=== PATIENT | male | born 1940 | race Caucasian/White ===

== ENCOUNTER 2017-01-05 16:48 | Inpatient (IN) | payer OTHER ==
[~2017-01-05] VITALS: Ht 200.7 cm; Wt 129.3 kg
[~2017-01-05 16:48] MED LIST: ASPIRIN325 MG PO; CEPHALEXIN500 M1 PO; COLCHICINE0.6 MG PO; FIBRO-TABS1 TAB PO; FISH OIL1000 MG PO; GLIMEPIRIDE1 MG PO; HYDROCHLOROTHIA25 MG PO; LISINOPRIL20 MG PO; LOPRESSOR 25MG25 MG PO; MAGNESIUM OXID400 MG PO; MORPHINE SULFAT30 M5 PO; MULTIVITAMIN1 TAB PO; NEURONTIN100 MG PO; PAMELOR25 MG PO; PERCOCET 325 MG1 TA3 PO; POTASSIUM CHLO10 MEQ PO; SIMVASTATIN40 MG PO; TOPCARE ASPIRI325 MG PO
--- NOTE | 2017-01-05 17:37 | History & Physical Pre-Op ---
General Information and HPI History of Present Illness: Tucker is a 76-year-old diabetic male with a history of a nonhealing ulcer to the plantar aspect of his left foot. The patient has undergone an extended course of conservative care, including local intensive wound care consisting of periodic weekly debridements and offloading with a total contact cast. Unfortunately, the patient's ulceration failed to improve and he developed a probing lesion with x-ray findings suggestive of osteomyelitis to the second metatarsal head. The patient recently completed a one-week course of Augmentin for a localized cellulitis. The patient did complain of a low-grade fever today of 100.1, otherwise he has been without any acute complaints. Allergies/Medications Allergies: Coded Allergies: NO KNOWN ALLERGIES (01/24/11) Home Med list Aspirin 325 MG ECT 1 TAB PO DAILY HEART (Reported) Cephalexin 500 MG TAB 1 TAB PO Q6 Cellulitis please stop taking this medication after completing the complete course of antibiotics. Your last day of antibiotic is 04/12/15. Colchicine 0.6 MG TAB 1 TAB PO BID Gout Fiber (Fibro-Tabs) 1 TAB TAB 1 TAB PO DAILY SUPPLEMENT (Reported) Gabapentin (Neurontin) 100 MG CAP 2 CAP PO BID UNKNOWN (Reported) Glimepiride 1 MG TAB 1 TAB PO PRN DIABETES (Reported) Lisinopril 20 MG TAB 1 TAB PO BID BP (Reported) Magnesium Oxide (Unknown Strength) TAB 400 MG PO DAILY SUPPLEMENT (Reported) Metoprolol Tartrate (Lopressor) 25 MG TAB 1 TAB PO BID HEART (Reported) Morphine Sulfate 30 MG TAB 1 TAB PO TID PRN PAIN (Reported) Multivitamin (Multiple Vitamins) 1 TAB TAB 1 TAB PO DAILY SUPPLEMENT ( Reported) NORTRIPTYLINE HCL (Pamelor) 25 MG CAP 1 CAP PO QPM UNKNOWN (Reported) OMEGA-3/DHA/EPA/FISH OIL ([place]-3 Fish Oil 1,000 MG Sftg) 1,000 MG SGL 1 CAP PO DAILY SUPPLEMENT (Reported) OXYCODONE HCL/ACETAMINOPHEN (Percocet 7.5-325 MG Tablet) 325 MG/7.5 MG TAB 1 TAB PO 4 TIMES/DAY PRN PAIN Simvastatin 40 MG TAB 1 TAB PO QPM CHOLESTEROL (Reported) Past History Medical History Neurological: NONE EENT: NONE Cardiovascular: CAD (status post stent 4 yrs 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 He is status post a dorsal column pain stimulator, prostate cancer status post prostatectomy and TURP, wrongful hammertoe repairs with toe amputation, status post MRSA infection, left total knee arthroplasty, herniorrhaphy, ACS s/p PCI,cellulitis History of MRSA: Yes History of VRE: No History of CDIFF: No Pneumonia Vaccine: 01/02/14 Influenza Vaccine: 03/24/14 Surgical History Pertinent Surgical History: hernia repair-inguinal, knee replacement (bilateral) , prostatectomy, Left great toe amputation status post hammertoe repair Past Family/Social History Family History Relations & Conditions if any Relation not specified for: No pertinent family history Psychosocial History Services at Home None Functional Ability ADLs Independent: dressing, eating, toileting, bathing. Ambulation: independent Review of Systems Review of Systems: Unremarkable except for that noted in history present illness Exam & Diagnostic Data Physical Exam: Rosado grade 4 ulceration noted to the plantar aspect of the left foot, at the level of the second metatarsal head. There is a mixed fibrotic and granular wound bed identified. At the proximal margin, the metatarsophalangeal joint is noted to be exposed with direct visualized patient of the metatarsal head. Minimal serous drainage identified. No crepitus or fluctuance identified. Assessment/Plan Assessment/Plan: Left foot cellulitis with osteomyelitis in the setting of a nonhealing neuropathic ulcer. Patient will be admitted for an initial debridement and cultures. Dr. Gibbs will be consultation for any perioperative recommendations. ID consult pending bone cultures. As Ranked By This Provider Problem List: 1. Cellulitis of left lower extremity Attending MD Review Statement Attending Statement Attending MD Statement: examined this patient
[2017-01-05 18:49] VITALS: BP 140/70
--- NOTE | 2017-01-05 19:52 | Cons- Medical ---
WERO COLORADO,HANIF 01/05/171950: General Information and HPI Consulting Request Date of Consult: 01/05/17 Requested By: GINO AGUIAR DPM Reason for Consult: OR Source of Information: patient, family, old records Exam Limitations: no limitations History of Present Illness: Mr Dowling is a very pleasant 76-year-old gentleman with past medical history of hypertension, hyperlipidemia, diabetes, coronary artery disease status post stent placement 6 years ago who was recently been advised by his traveling operator Dr. Aguiar to come into the [facility] on 01/05/2017 due to a non healing ulcer. In 2011 the patient had a great toe amputation on his left foot. Approximately 6 weeks ago the patient developed an ulcer located on the plantar aspect of the left foot. He subsequently followed up with Dr Butler and Dr. Aguiar for a period of 6 weeks, where he underwent care with a hard cast, skin graft and was instructed to be non weight bearing. Despite above the patient has been unable to have relief from his symptoms. Two weeks ago, he was started on Augmentin for outpatient treatment, and had some blood work and an X ray done on 01/01 which showed no erosions of the second metatarsal head suspicious for osteomyelitis. His who is involved in his care noted that the ulcer has discharge fluid. Prior to admission the patient did report subjective fever. Temperature was up to 101. He took some acetaminophen for symptomatic releif. He denies any chills, chest pain, chest discomfort, shortness of breath, abdominal pain or abdominal discomfort. The patient does have a history of urinary incontinence owing to prostate surgery. He denies any urinary frequency, dysuria or foul-smelling urine. At the temporal clinical interaction the patient did not endorse any pain. He did report that his sensation in his bilateral lower extremities is currently limited owing to a long-standing history of peripheral vascular disease. In May 2015 microbiology data does show extremity showed moderate growth of staph aureus. These were sensitive to cefazolin, amoxicillin and clavulanic acid, nitrofurantoin, tetracycline, Bactrim. Allergies/Medications Allergies: Coded Allergies: NO KNOWN ALLERGIES (01/24/11) Current Medications: Current Medications Sig/Chan Start time Last Medication Dose Route Stop Time Status Admin Aspirin 325 MG DAILY 01/06 1000 CAN PO Dextrose/Sodium 1,000 ML Q13H 01/05 2300 AC Chloride IV Gabapentin 200 MG BID 01/05 2200 AC 01/05 PO 2227 Glimepiride 1 MG DAILY 01/06 1000 CAN PO Lisinopril 20 MG DAILY 01/06 1000 CAN PO Metoprolol Tartrate 25 MG BID 01/05 2200 AC 01/05 PO 222 Multivitamins 1 TAB DAILY 01/06 1000 AC PO Nortriptyline HCl 25 MG AT BEDTIME 01/05 2200 AC PO Oxycodone/ 1 TAB Q6P PRN 01/05 191 AC Acetaminophen PO Simvastatin 40 MG AT BEDTIME 01/05 2200 AC 01/05 PO 2230 Review of Systems Review of Systems Constitutional: Reports: see HPI. 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 He is status post a dorsal column pain stimulator, prostate cancer status post prostatectomy and TURP, wrongful hammertoe repairs with toe amputation, status post MRSA infection, left total knee arthroplasty, herniorrhaphy, ACS s/p PCI,cellulitis Surgical History Surgical History: hernia repair-inguinal, knee replacement (bilateral), prostatectomy, Left great toe amputation status post hammertoe repair Family History Relations & Conditions If Any: Relation not specified for: No pertinent family history Psychosocial History Where Do You Live? Home Who Do You Live With? spouse Services at Home: None Primary Language: Armenian Smoking Status: Never Smoked ETOH Use: denies use Illicit Drug Use: denies illicit drug use Functional Ability ADLs Independent: dressing, eating, toileting, bathing. Ambulation: independent IADLs Independent: shopping, housework, finances, food prep, telephone, transportation , medication admin. Exam & Diagnostic Data Last 24 Hrs of Vital Signs/I&O Vital Signs Date Time Temp Pulse Resp B/P B/P Pulse O2 O2 Flow FiO2 Mean Ox Delivery Rate 01/059 99.6 107 16 140/70 95 Room Air Physical Exam General Appearance: well developed/nourished, no apparent distress, alert, awake , comfortable Head: atraumatic, normal appearance Ears, Nose, Throat: normal pharynx, normal ENT inspection Respiratory: normal breath sounds, chest non-tender, no respiratory distress Cardiovascular: regular rate/rhythm Gastrointestinal: normal bowel sounds, soft, non-tender Back: normal inspection, CVA tenderness (L) Extremities: normal inspection, normal capillary refill, normal range of motion, Left Foot > Right foot size. Some Generalized LLE edema noted. , Left Gluteal Implanatable Pain Modulator. Neurologic/Psych: no motor/sensory deficits, awake, alert, oriented x 3 Cranial Nerves: normal hearing, normal speech, PERRL Feet Bottom 1) Ulcer present, 2 cm X 2cm Last 24 Hrs of Labs/Yo: Laboratory Tests 01/05/171944: Anion Gap 11, Estimated GFR 39 L, BUN/Creatinine Ratio 20.0, Hemoglobin A1c Pending, PT 14.4 H, INR 1.38 H, CBC w Diff NO MAN DIFF REQ, RBC 4.55 L, MCV 86.4, MCH 28.8, RDW 14.5, MPV 8.4, Gran % 77.0 H, Lymphocytes % 13.4 L, Monocytes % 8.8, Eosinophils % 0.6, Basophils % 0.2, Absolute Granulocytes 9.8 H, Absolute Lymphocytes 1.7, Absolute Monocytes 1.1 H, Absolute Eosinophils 0.1 , Absolute Basophils 0, PUBS MCHC 33.3, ESR Westergren 81 H Assessment/Plan Assessment/Plan Mr Dowling is a very pleasant 76-year-old gentleman with past medical history of hypertension, hyperlipidemia, diabetes, coronary artery disease status post stent placement 6 years ago who was recently been advised by his traveling operator Dr. Aguiar to come into the [facility] on 01/05/2017 due to a non healing ulcer. Causing worsening of his left lower extremity ulcers likely due to chronic venous stasis in the setting of peripheral vascular disease. #Non Healing Ulcer with possible Osteomyelitis as suggested on X-Ray Patient scheduled to go to the OR in the a.m. of 01/06/2017 for a bone biopsy prior to beginning antibiotics. Patient will likely need long-term antibiotics for 4-6 weeks and will need a PICC line placed. Follow-up podiatry recommendations. Once back from OR may consider ID consultation. Will keep patient nothing by mouth overnight. Repeat a CBC and BEP in the morning. Patient is not able to have an MRI due to insertion of a spine stimulator for pain control implanted in his left gluteus. #Hx of CAD Consult from the patient's concrete products machine operator Dr. Gibbs in the morning. Repeat an EKG in the morning. #History of diabetes. Hold Home antihyperglycemic. Begin the patient on low-dose insulin NPO sliding scale. Gentle IV hydration with D5 running at 75 ml/hr Hemoglobin A1c. Keep blood sugars between 120 and 140. #VALENTINA At the time of admission BUN and creatinine was elevated at 34 and 1.7. BUN/creatinine ratio was 20. Hold off the patient's DWAINE inhibitor and diuretic for now. Assess BEP in a.m. Gentle hydration at 75 mL per hour. Pain: Acetaminophen 650 mg every 6 when necessary Oxycodone with acetaminophen 1 tab every 6 when necessary Morphine 2 mg every 4 when necessary DVT prophylaxis Heparin SC Diet Nothing by mouth for now Code *Full code vs DNI please confirm in AM Consult Acknowledgment - Thank you for your consult request. RICH COLORADO, [facility] 01/06/17 0010: General Information and HPI Allergies/Medications Home Med List: Aspirin 325 MG ECT 1 TAB PO DAILY HEART (Reported) Cephalexin 500 MG TAB 1 TAB PO Q6 Cellulitis please stop taking this medication after completing the complete course of antibiotics. Your last day of antibiotic is 04/12/15. Fiber (Fibro-Tabs) 1 TAB TAB 1 TAB PO DAILY SUPPLEMENT (Reported) Gabapentin (Neurontin) 100 MG CAP 2 CAP PO BID UNKNOWN (Reported) Glimepiride 1 MG TAB 1 TAB PO PRN DIABETES (Reported) Lisinopril 20 MG TAB 1 TAB PO BID BP (Reported) Magnesium Oxide (Unknown Strength) TAB 400 MG PO DAILY SUPPLEMENT (Reported) Metoprolol Tartrate (Lopressor) 25 MG TAB 1 TAB PO BID HEART (Reported) Morphine Sulfate 30 MG TAB 1 TAB PO TID PRN PAIN (Reported) Multivitamin (Multiple Vitamins) 1 TAB TAB 1 TAB PO DAILY SUPPLEMENT ( Reported) NORTRIPTYLINE HCL (Pamelor) 25 MG CAP 1 CAP PO QPM UNKNOWN (Reported) OMEGA-3/DHA/EPA/FISH OIL ([place]-3 Fish Oil 1,000 MG Sftg) 1,000 MG SGL 1 CAP PO DAILY SUPPLEMENT (Reported) OXYCODONE HCL/ACETAMINOPHEN (Percocet 7.5-325 MG Tablet) 325 MG/7.5 MG TAB 1 TAB PO 4 TIMES/DAY PRN PAIN Simvastatin 40 MG TAB 1 TAB PO QPM CHOLESTEROL (Reported) Assessment/Plan Consult Acknowledgment - Thank you for your consult request. Attending MD Review Statement Attending Statement Attending MD Statement: examined this patient, discuss w/resident/PA/FOURDRINIER OPERATOR, agreed w/resident/PA/FOURDRINIER OPERATOR Attending Assessment/Plan: 76 yo M with CAD s/p PCI of the OM (2010), sees Dr. 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 Aguiar service for management of nonhealing ulcer to the plantar aspect of his left foot. He has failed outpatient management with debridements and antibiotic therapy. Medicine is being consulted for co-management of chronic medical conditions. VSS. Labs: WBC 12.8, ESR 81, Na 133, bicarb 32, BUN 34, creat 1.7 (baseline 1.3- 1.4). Foot Xray (01/01): new erosions of second metatarsal head are suspicious for osteomyelitis. Plan: Patient is admitted for left foot nonhealing plantar ulcer with cellulitis and osteomyelitis. Patient cannot get an MRI as his stimulator is not MRI compatible. We will keep him NPO after MN for OR in AM, for debridement and bone cultures. Obtain baseline EKG. Dr. Gibbs to see in AM for pre-op clearance. Hold aspirin and plan to resume post-op. Eventual ID consult. Pain management. Diabetes management hold glimepiride, initiate insulin NPO SS. Check HbA1c. Mild VALENTINA on CKD will give gentle hydration, hold lisinopril. Resume colchicine , gabapentin, metoprolol, nortriptyline and simvastatin. DVT prophylaxis. DNI.
[2017-01-05 20:51] LABS: ABSOLUTE BASOPHIL COUNT 0 /CUMM (0.0-0.2); ABSOLUTE EOSINOPHIL COUNT 0.1 /CUMM (0.0-0.7); ABSOLUTE GRANULOCYTE CT 9.8 /CUMM (1.4-6.5); ABSOLUTE LYMPH COUNT 1.7 /CUMM (1.2-3.4); ABSOLUTE MONOCYTE COUNT 1.1 /CUMM (0.10-0.60); BASOPHIL % 0.2 % (0.0-2.0); EOSINOPHIL % 0.6 % (0-5); HEMATOCRIT 39.4 % (42-52); MEAN CORPUSCULAR HGB 28.8 PG (27.0-31.0); MEAN CORPUSCULAR HGB CONC 33.3 G/DL (33.0-37.0); MEAN CORPUSCULAR VOLUME 86.4 FL (80.0-94.0); MEAN PLATELET VOLUME 8.4 FL (7.4-10.4); PLATELET COUNT 249 /CUMM (130-400); RBC DISTRIBUTION WIDTH 14.5 % (11.5-14.5); RED BLOOD CELL CT 4.55 /CUMM (4.70-6.10); WHITE BLOOD CELL COUNT 12.8 /CUMM (4.8-10.8)
[2017-01-05 20:55] LABS: PT 14.4 SEC (9.4-12.5)
[2017-01-05 21:50] VITALS: BP 136/60
[2017-01-06 07:27] VITALS: BP 140/66
--- NOTE | 2017-01-06 07:33 | PN- Medicine Consult ---
MAIRA DELAROSA 01/06/17 0732: Assessment/Plan Assessment/Plan Assessment: Patient is a 76-year-old gentleman with past medical history significant for hypertension, hyperlipidemia, diabetes, coronary artery disease status post stent placement 6 years ago hasn't been admitted to [facility] under Dr. Giles's service for possible surgical intervention of the nonhealing ulcer with concerns of underlying osteoarthritis on 01/05/2017. We're doing medical consult for comanagement of hypertension and hyperlipidemia, diabetes and medical and cardiac optimization before the surgery Plan: Plan: 1. History of hypertension, hyperlipidemia, coronary artery disease: * Dr. Gibbs has been paged for cardiac clearance/cardiac optimization before the surgery today. * Continued to hold aspirin, restart after the surgery * EKG done in the morning showed sinus/ectopic rhythm with first-degree AV block and right bundle branch block, QTC prolonged 503. * Continue statins and metoprolol before surgery. * Avoid any QTC prolonging agents 2. History of diabetes mellitus * Last 3 finger sugar sticks 165, 178, 164 * We'll continue to hold oral hypoglycemic agents. * Check Hemoglobin A1c . * Continue with NPH insulin and insulin sliding scale with D5 half at 75 ml/h * Accu-Cheks. 3 VALENTINA on admission: * Continue to monitor BEP, DWAINE inhibitors on hold * Continue gentle hydration. * avoid any nephrotoxic agents. 4. Nonhealing ulcer on the plantar aspect of the left foot with cellulitis and possible underlying osteomyelitis(suggested by x-ray, MRI cannot be obtained due to spine stimulator) * Patient is currently nothing by mouth for bone biopsy/surgical interventions prior to beginning antibiotics. * Cardiac clearance per Dr. Gibbs has been obtained before the surgery will follow the recommendations. * Continue pain management with IV morphine, oxycodone and Tylenol as per surgery. DVT prophylaxis subcutaneous heparin Patient is currently nothing by mouth Code status DNI Problem List: 1. Acute coronary syndrome 2. ACUTE RENAL FAILURE 3. Diabetes mellitus type 2 Subjective Subjective: Patient is seen and examined the morning, slept well overnight ,denies any complaints. Vitals are stable. Patient is currently nothing by mouth for possible surgical intervention versus bone biopsy of the nonhealing ulcer by Dr. Rousseau, awaiting cardiology clearance by Dr. Gibbs. Review of Systems Constitutional: Denies: chills, diaphoresis, fever. EENTM: Denies: blurred vision, double vision, visual changes, eye pain. Cardiovascular: Denies: chest pain, edema, orthopena. Respiratory: Denies: cough, hemoptysis, orthopnea. Gastrointestinal: Denies: abdominal pain, bloating, constipation. Genitourinary: Denies: discharge, dysuria. Musculoskeletal: Denies: back pain, gout, joint pain. Skin: Denies: cysts, change in hair/nails. Objective Last 24 Hrs of Vital Signs/I&O Vital Signs Date Time Temp Pulse Resp B/P B/P Pulse O2 O2 Flow FiO2 Mean Ox Delivery Rate 01/06 727 98.2 110 20 140/66 94 Room Air 01/05 2227 78 134/86 01/05 2150 98.9 99 20 136/60 96 Room Air 01/05 1849 99.6 107 16 140/70 95 Room Air Intake & Output 01/06 1600 01/06 0800 01/06 0000 Intake Total 300 120 Output Total 400 Balance 300 -280 Intake, IV 300 Intake, Oral 0 120 Output, Urine 400 Patient 285 lb Weight Physical Exam General Appearance: well developed/nourished, no apparent distress Head: atraumatic, normal appearance Cardiovascular: regular rate/rhythm, edema Respiratory: normal breath sounds, chest non-tender Current Medications: Current Medications Sig/Chan Start time Last Medication Dose Route Stop Time Status Admin Acetaminophen 650 MG Q6P PRN 01/06 0230 AC PO Ampicillin Sodium/ 3,000 MG Q6 01/06 1800 AC Sulbactam Sodium IV Sodium Chloride 100 ML Atorvastatin Calcium 20 MG 1700 01/06 1700 CAN PO Dextrose/Sodium 1,000 ML Q13H 01/05 2300 DC 01/06 Chloride IV 1215 Gabapentin 200 MG BID 01/06 1000 CAN PO Gabapentin 200 MG BID 01/05 2200 AC 01/06 PO 0851 Glimepiride 1 MG DAILY 01/06 1000 CAN PO Heparin Sodium 5,000 UNIT Q8 01/06 0600 AC 01/06 (Porcine) SC 0742 Insulin Aspart 0 TIDAC 01/06 0800 CAN SC Insulin Human Regular 0 Q6 01/06 0600 AC 01/06 SC 1214 Lisinopril 20 MG DAILY 01/06 1000 CAN PO Metoprolol Tartrate 25 MG BID 01/06 1000 CAN PO Metoprolol Tartrate 25 MG BID 01/05 2200 AC 01/06 PO 0851 Morphine Sulfate 30 MG TID PRN 01/06 1445 AC 01/06 PO 1443 Morphine Sulfate 2 MG Q4P PRN 01/06 0230 AC 01/06 IV 0744 Multivitamins 1 TAB DAILY 01/06 1000 AC PO Nortriptyline HCl 25 MG QPM 01/06 2200 CAN PO Nortriptyline HCl 25 MG AT BEDTIME 01/05 2200 AC PO Oxycodone/ 1 TAB Q6P PRN 01/05 1915 AC Acetaminophen PO Simvastatin 40 MG AT BEDTIME 01/05 2200 AC 01/05 PO 2230 Results Last 24 Hrs Lab/Yo Results: Laboratory Tests 01/06/17 0640: Anion Gap 11, Estimated GFR 39 L, BUN/Creatinine Ratio 19.4, CBC w Diff NO MAN DIFF REQ, RBC 4.55 L, MCV 86.5, MCH 29.0, RDW 14.3, MPV 8.5, Gran % 62.6, Lymphocytes % 23.9, Monocytes % 11.9 H, Eosinophils % 1.3, Basophils % 0.3, Absolute Granulocytes 7.2 H, Absolute Lymphocytes 2.8, Absolute Monocytes 1.4 H, Absolute Eosinophils 0.2, Absolute Basophils 0, PUBS MCHC 33.5 Microbiology 01/06 1700 EXTREMITIE: Gross Specimen Examination - RECD 01/06 1700 EXTREMITIE: Gram Stain - RECD VILMAQUYNH 01/06/17 1328: Attending MD Review Statement Attending Sign Off Attending Cosign Statement: I have: examined this patient, reviewed [facility] EMR data, personally reviewd images, discussd w/resident/PA/OIL AND GAS EXPLORATION TECHNICIAN, discussed mgmt plan w/burke. Other Findings: "76 yo M with CAD s/p PCI of the OM (2010), sees Dr. 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 Rousseau service for management of nonhealing ulcer to the plantar aspect of his left foot. He has failed outpatient management with debridements and antibiotic therapy. Medicine is being consulted for co-management of chronic medical conditions." Plan: Patient is admitted for left foot nonhealing plantar ulcer with cellulitis and osteomyelitis. Patient cannot get an MRI as his stimulator is not MRI compatible. Patient for debridement and bone cultures. Cardiology following, Hold aspirin and plan to resume post-op. Eventual ID consult. Pain management. Diabetes management hold glimepiride, c/w insulin SS. Mild VALENTINA on CKD will give gentle hydration, resume lisinopril after procedure. Resume colchicine, gabapentin, metoprolol, nortriptyline and simvastatin. DVT prophylaxis. DNI.
[2017-01-06 07:47] LABS: ABSOLUTE BASOPHIL COUNT 0 /CUMM (0.0-0.2); ABSOLUTE EOSINOPHIL COUNT 0.2 /CUMM (0.0-0.7); ABSOLUTE GRANULOCYTE CT 7.2 /CUMM (1.4-6.5); ABSOLUTE LYMPH COUNT 2.8 /CUMM (1.2-3.4); ABSOLUTE MONOCYTE COUNT 1.4 /CUMM (0.10-0.60); BASOPHIL % 0.3 % (0.0-2.0); EOSINOPHIL % 1.3 % (0-5); GRANULOCYTE % 62.6 % (42.2-75.2); HEMATOCRIT 39.3 % (42-52); MEAN CORPUSCULAR HGB CONC 33.5 G/DL (33.0-37.0); MEAN CORPUSCULAR VOLUME 86.5 FL (80.0-94.0); MEAN PLATELET VOLUME 8.5 FL (7.4-10.4); PLATELET COUNT 242 /CUMM (130-400); RBC DISTRIBUTION WIDTH 14.3 % (11.5-14.5); RED BLOOD CELL CT 4.55 /CUMM (4.70-6.10); WHITE BLOOD CELL COUNT 11.6 /CUMM (4.8-10.8)
--- NOTE | 2017-01-06 09:22 | Cons- Cardiology ---
General Information and HPI Consulting Request Date of Consult: 01/06/17 Requested By: GINO AGUIAR DPM History of Present Illness: Daniel is a 76 year old malewith a history of chronic pain syndrome, hypertension, and diabetes mellitus. He also carries a history of coronary artery disease, s/ p angioplasty. Since I last saw Tucker he has been doing relatively well from a cardiac standpoint without chest discomfort, shortness of breath, lightheadedness or palpitations. He was admitted for surgery to his left foot which is swollen and infected. It should be recalled that on a previous hospital admission for treatment of cellulitis with osteomyelitis, accompanied by left great toe amputation. The patient's latest echo showed a normal EF of greater than 65% with mild LVH and impaired LV relaxation. The left atrium is mildly dilated. In terms of cardiac valves there is mild mitral annular calcification, trace tricuspid regurgitation , very mild aortic stenosis and normal RV pressures. To review the patient's past cardiac history: This patient was initially seen in the setting of moderate precordial chest pain radiating to his left neck, shoulder and back. He did have an increased troponin of 27, indicative of an ME. His electrocardiographic also showed some transient ST depressions. As such, cardiac catheterization was performed. This study showed a nonexistent left main with separate take-off of the LAD and left circumflex. He had an acute 95% ostial stenosis of the obtuse Marginal-1 branch. This lesion underwent placement of a 2.75 x 8 mm coated Ion stent in the 70% stenosis of the Obtuse Marginal-1, followed by a second 2.75 x 8 mm. Ion stent in the ostial to proximal portion of the Obtuse Marginal-1 to treat the 95% stenosis. This above resulted in 0% residual stenosis with normal flow. It should be noted that a secondary branch off of the Obtuse Marginal-1 also harbored a 68% ostial to proximal stenosis which was unchanged, and which I felt was non-flow limiting. The LAD displayed a 40% ostial stenosis which was non-flow limiting, followed by a 70% long proximal to mid stenosis, which crossed a large diagonal branch. This first diagonal branch itself was a large vessel with a 75% proximal stenosis. The left circumflex harbored a 30% stenosis after the take-off of the Obtuse Marginal-1 branch, which was the vessel that I previously described having the 95% ostial stenosis. The right coronary artery was dominant, with luminal irregularities. Left ventriculography showed an overall EF of 50%. Finally it should be noted that in the setting of his borderline LAD and diagonal disease I did perform a stress test. This showed borderline posterolateral wall ischemia. This was something I felt could be successfully treated medically. Allergies/Medications Allergies: Coded Allergies: NO KNOWN ALLERGIES (01/24/11) Home Med List: Aspirin 325 MG ECT 1 TAB PO DAILY HEART (Reported) Cephalexin 500 MG TAB 1 TAB PO Q6 Cellulitis please stop taking this medication after completing the complete course of antibiotics. Your last day of antibiotic is 04/12/15. Fiber (Fibro-Tabs) 1 TAB TAB 1 TAB PO DAILY SUPPLEMENT (Reported) Gabapentin (Neurontin) 100 MG CAP 2 CAP PO BID UNKNOWN (Reported) Glimepiride 1 MG TAB 1 TAB PO PRN DIABETES (Reported) Lisinopril 20 MG TAB 1 TAB PO BID BP (Reported) Magnesium Oxide (Unknown Strength) TAB 400 MG PO DAILY SUPPLEMENT (Reported) Metoprolol Tartrate (Lopressor) 25 MG TAB 1 TAB PO BID HEART (Reported) Morphine Sulfate 30 MG TAB 1 TAB PO TID PRN PAIN (Reported) Multivitamin (Multiple Vitamins) 1 TAB TAB 1 TAB PO DAILY SUPPLEMENT ( Reported) NORTRIPTYLINE HCL (Pamelor) 25 MG CAP 1 CAP PO QPM UNKNOWN (Reported) OMEGA-3/DHA/EPA/FISH OIL ([place]-3 Fish Oil 1,000 MG Sftg) 1,000 MG SGL 1 CAP PO DAILY SUPPLEMENT (Reported) OXYCODONE HCL/ACETAMINOPHEN (Percocet 7.5-325 MG Tablet) 325 MG/7.5 MG TAB 1 TAB PO 4 TIMES/DAY PRN PAIN Simvastatin 40 MG TAB 1 TAB PO QPM CHOLESTEROL (Reported) Review of Systems Review of Systems: A review of systems is unremarkable. 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 He is status post a dorsal column pain stimulator, prostate cancer status post prostatectomy and TURP, wrongful hammertoe repairs with toe amputation, status post MRSA infection, left total knee arthroplasty, herniorrhaphy, ACS s/p PCI,cellulitis Surgical History Surgical History: hernia repair-inguinal, knee replacement (bilateral), prostatectomy, Left great toe amputation status post hammertoe repair Family History Relations & Conditions If Any: Relation not specified for: No pertinent family history Psychosocial History Where Do You Live? Home Who Do You Live With? spouse Services at Home: None Primary Language: Sierra Leonean Smoking Status: Never Smoked ETOH Use: denies use Illicit Drug Use: denies illicit drug use Functional Ability ADLs Independent: dressing, eating, toileting, bathing. Ambulation: independent IADLs Independent: shopping, housework, finances, food prep, telephone, transportation , medication admin. Exam & Diagnostic Data Vital Signs and I&O Vital Signs Date Time Temp Pulse Resp B/P B/P Pulse O2 O2 Flow FiO2 Mean Ox Delivery Rate 01/06 0851 140/66 01/06 0727 98.2 110 20 140/66 94 Room Air 01/05 2227 78 134/86 01/05 2150 98.9 99 20 136/60 96 Room Air 01/05 1849 99.6 107 16 140/70 95 Room Air Intake & Output 01/06 1600 01/06 0800 01/06 0000 01/05 1600 01/05 0800 01/05 0000 Intake Total 300 120 Output Total 400 Balance 300 -280 Intake, IV 300 Intake, Oral 0 120 Output, Urine 400 Patient 285 lb Weight Physical Exam: General: WD/WN male in NAD; alert and oriented x 3 HEENT: NC/AT, PERRL, EOMI Neck: no JVD, no carotid bruit Heart: RRR w/o murmur Lungs: clear bilaterally ABdomen: soft, NT, +ve bowel sounds Extremities: no edema on right, left foot is swollen and erythematous Assessment/Plan Assessment/Plan * This patient is doing well from a cardiac standpoint and is without symptoms of myocardial ischemia or decompensated heart failure. He is a reasonable candidate for surgery without any addition cardiac workup. Continue his current medications. Consult Acknowledgment - Thank you for your consult request.
[2017-01-06 14:21] VITALS: BP 116/68
--- NOTE | 2017-01-06 17:23 | Operative Report ---
Operative/Inv Procedure Report Surgery Date: 01/06/17 Name of Procedure: 1 open incision and drainage deep to the deep fascia with exposure of the extensor and flexor tendon and tendon sheath multiple sites left foot 2 second ray resection left foot 3 intraoperative administration of ankle block anesthesia 4 excisional debridement Pre-Operative Diagnosis: 1 open necrotic wound left foot 2 osteomyelitis left foot 3 diabetic peripheral neuropathy Post-Operative Diagnosis: The same Estimated Blood Loss: less than 50ml Surgeon/Baker Doughnut: GINO AGUIAR DPM Anesthesia: moderate sedation, block Operative/Procedure Note Note: After obtaining informed consent the patient was brought to the operating room and placed on the operating table in the supine position. The patient isn't securely fastened to the operating table utilizing safety belt. After Mr.'s of IV sedation, 10 mL of 0.5% Marcaine plain was infiltrated about the patient's left ankle. The left foot and ankle then scrubbed prepped and draped in usual aseptic manner. Digitorectal left foot were large full-thickness necrotic was identified. A 15 blade visualized sharply revised skin margins. A dorsal incision was extended overlying the distal second ray. This was carried down deep to the deep fascia with exposure of the extensor and flexor tendon and tendon sheath multiple sites, both proximally and distally. All necrotic nonviable infected tissue sharply evacuated from the wound bed. Dissection was then carried down to the periosteum overlying the distal second metatarsal which was incised reflected. Sagittal bone saw was utilized performed through and through osteotomy in the distal osseous segment was freed and passed from the operative field. Specimen sent for both pathologic and Sae biologic inspection. The open wound was then irrigated with 3 L of normal sterile saline fissure 50,000 units of bacitracin. Following this, the foot was redraped and the surgeon's top was changed clean gloves. Any bleeding vessels identified were cauterized or ligated as encountered. Nipple was then packed with iodoform and 3-0 nylon sutures were placed. Foot was dressed with 4 x 4's Kerlix and an Cornelio wrap. The patient was noted tolerate both procedure and anesthesia well and the patient was transported from the operating room to recovery with vital signs stable.
[2017-01-06 22:00] VITALS: BP 130/70
[2017-01-07 06:57] VITALS: BP 110/50
--- NOTE | 2017-01-07 09:47 | PN- Medicine Consult ---
[place] 01/07/17 0946: Assessment/Plan Assessment/Plan Assessment: Patient is a 76-year-old gentleman with past medical history significant for hypertension, hyperlipidemia, diabetes, coronary artery disease status post stent placement 6 years ago hasn't been admitted to [facility] under Dr. Giles's service for possible surgical intervention of the nonhealing ulcer with concerns of underlying osteomyelitis on 01/05/2017. We're doing medical consult for comanagement of hypertension and hyperlipidemia, diabetes and VALENTINA on CKD. Plan: Plan: 1. History of hypertension, hyperlipidemia, coronary artery disease * Will restart his ome dose of aspirin * Continue statins and metoprolol before surgery. * Avoid any QTC prolonging agents * Dr. Gibbs is following the patient 2. History of diabetes mellitus * Good blood glucose control * We'll continue to hold oral hypoglycemic agents. * Hemoglobin A1c 6.6 * Continue with NPH insulin and insulin sliding scale * Accu-Cheks * Continue Diabteic diet 3 VALENTINA on CKD: * Stable but not improving per yesterday's labs; will check labs today * Continue to monitor BEP, DWAINE inhibitors on hold * Continue gentle hydration as needed * avoid any nephrotoxic agents. 4. Nonhealing ulcer on the plantar aspect of the left foot with cellulitis and possible underlying osteomyelitis(suggested by x-ray, MRI cannot be obtained due to spine stimulator) * Post op day 1-following open incision and drainage of multiple sites on left foot, second ray resection left foot and excisional debridement * Patient has been started on IV Unasyn and may need adjunct faculty for medical terminology antibiotics * Dr. Suarez plans to take the patient for a revision next week Thursday * ID consult for antibiotic recommendations * Pain is adequately controlled * Continue pain management with IV morphine, oxycodone and Tylenol as per surgery * Repeat labs in AM * WIll order PT * Weight beaing recommendations per Dr. Suarez DVT prophylaxis subcutaneous heparin Patient is currently nothing by mouth Code status DNI Problem List: 1. Acute coronary syndrome 2. VALENTINA (acute kidney injury) 3. Diabetes mellitus type 2 4. CKD (chronic kidney disease) Subjective Subjective: patient is sitting up in a chair, has no complaint. Asks when he can start using his heel to walk so he would be able to ambulate to the bathroom more easily. I told him Dr. Suarez would be in the best position to let him know how soon he woud be able to ambulate. Review of Systems Constitutional: Reports: no symptoms. Objective Last 24 Hrs of Vital Signs/I&O Vital Signs Date Time Temp Pulse Resp B/P B/P Pulse O2 O2 Flow FiO2 Mean Ox Delivery Rate 01/07 0919 110/50 01/07 0657 98.5 79 20 110/50 93 Room Air 01/06 2200 98.0 77 20 130/70 95 Room Air 01/06 2105 73 116/78 01/06 1421 97.7 73 18 116/68 96 Room Air Intake & Output 01/07 1600 01/07 0800 01/07 0000 Intake Total 320 1020 Output Total 700 400 Balance -380 620 Intake, IV 200 100 Intake, Oral 120 920 Output, Urine 700 400 Physical Exam General Appearance: well developed/nourished, no apparent distress, alert, awake , comfortable Cardiovascular: regular rate/rhythm Respiratory: normal breath sounds, lungs clear Abdomen: normal bowel sounds, soft, non-tender Extremities: bandaged left foot with blood soaked at the site of amputation, 1 + pedal edema on left leg, no edema on right leg Skin: intact, normal color Current Medications: Current Medications Sig/Chan Start time Last Medication Dose Route Stop Time Status Admin Acetaminophen 650 MG Q6P PRN 01/06 0230 AC PO Ampicillin Sodium/ 3,000 MG Q6 01/06 1800 AC 01/07 Sulbactam Sodium IV 0615 Sodium Chloride 100 ML Dextrose/Sodium 1,000 ML Q13H 01/05 2300 TN 01/06 Chloride IV 1215 Fentanyl Citrate 100 MCG .STK-MED ONE 01/06 1630 DC IM 01/06 1631 Gabapentin 200 MG BID 01/05 2200 01/07 PO 0919 Heparin Sodium 5,000 UNIT Q8 01/06 0600 01/07 (Porcine) SC 0614 Insulin Human Regular 0 Q6 01/06 0600 01/06 SC 1214 Metoprolol Tartrate 25 MG BID 01/05 2200 01/07 PO 0919 Midazolam HCl 2 MG .STK-MED ONE 01/06 1630 DC IM 01/06 1631 Morphine Sulfate 30 MG TID PRN 01/06 1445 01/07 PO 0623 Morphine Sulfate 2 MG Q4P PRN 01/06 0230 07/18 IV 0744 Multivitamins 1 TAB DAILY 01/06 1000 AC 01/07 PO 0919 Nortriptyline HCl 25 MG AT BEDTIME 01/05 2200 AC 01/06 PO 2105 Oxycodone/ 1 TAB Q6P PRN 01/05 1915 AC Acetaminophen PO Simvastatin 40 MG AT BEDTIME 01/05 2200 AC 01/06 PO 2107 Results Last 24 Hrs Lab/Yo Results: Microbiology 01/06 1700 EXTREMITIE: Gross Specimen Examination - RECD 01/06 1700 EXTREMITIE: Gram Stain - RECD QUYHN ESPARZA 01/07/17 1112: Attending MD Review Statement Attending Sign Off Attending Cosign Statement: I have: examined this patient, reviewed [employer] EMR data, personally reviewd images, discussd w/resident/PA/WELDER MACHINE OPERATOR, discussed mgmt plan w/burke. Other Findings: Patient is admitted for left foot nonhealing plantar ulcer with cellulitis and osteomyelitis. Patient cannot get an MRI as his stimulator is not MRI compatible. Patient s/p debridement and bone cultures. Cardiology following, Resume aspirin as per podiatry. Eventual ID consult follow culuteres on i/v unasyn. PICC line, abx, Pain management. Diabetes management hold glimepiride, c/w insulin SS. Mild VALENTINA on CKD improving will give gentle hydration, resume lisinopril after procedure. Resume colchicine, gabapentin, metoprolol, nortriptyline and simvastatin. DVT prophylaxis. DNI. Consult case management.
[2017-01-07 12:58] LABS: ABSOLUTE BASOPHIL COUNT 0 /CUMM (0.0-0.2); ABSOLUTE EOSINOPHIL COUNT 0.1 /CUMM (0.0-0.7); ABSOLUTE LYMPH COUNT 2.1 /CUMM (1.2-3.4); ABSOLUTE MONOCYTE COUNT 0.9 /CUMM (0.10-0.60); BASOPHIL % 0.2 % (0.0-2.0); EOSINOPHIL % 1.5 % (0-5); GRANULOCYTE % 65.2 % (42.2-75.2); HEMATOCRIT 37.1 % (42-52); MEAN CORPUSCULAR HGB 28.8 PG (27.0-31.0); MEAN CORPUSCULAR HGB CONC 33.5 G/DL (33.0-37.0); MEAN CORPUSCULAR VOLUME 86.1 FL (80.0-94.0); MEAN PLATELET VOLUME 8.6 FL (7.4-10.4); PLATELET COUNT 234 /CUMM (130-400); RBC DISTRIBUTION WIDTH 14.3 % (11.5-14.5); RED BLOOD CELL CT 4.31 /CUMM (4.70-6.10); WHITE BLOOD CELL COUNT 9.2 /CUMM (4.8-10.8)
--- NOTE | 2017-01-07 14:02 | NUR ---
PHYSICAL THERAPY. PT CONSULT RECEIVED AND CHART REVIEWED. Pt IS AMBULATING AROUND ROOM I'LY AND REPORTS HE IS UNABLE TO AMBULATE FURTHER AT THIS TIME 2/2 L FOOT EDEMA AND PAIN- PLAN TO RETURN TO OR LATER THIS WEEK PER Pt. PLEASE RE-CONSULT S/P UPCOMING PROCEDURE W/ APPROPRIATE WB'ING STATUS IF THERE IS A CHANGE IN Pt MOBILITY LEVEL. THANK YOU.
[2017-01-07 16:06] VITALS: BP 110/60
--- NOTE | 2017-01-07 17:14 | Cons- Vascular Surgery ---
General Information and HPI Consulting Request Date of Consult: 01/07/17 Requested By: GINO AGUIAR DPM History of Present Illness: 6-year-old gentleman with history of melena, diabetes, coronary artery disease status post stents who presented to the hospital with nonhealing left foot ulcer. His had a chronic ulcer on his foot and has gone double debridement and conservative management. He presented with leukocytosis we will basilic count up to 12.8 which is down to 9.2 on antibiotics. His creatinine is 1.3 today but was 1.7 on admission. I was asked to see the patient for evaluation of adequacy of blood flow to the left foot. Allergies/Medications Allergies: Coded Allergies: NO KNOWN ALLERGIES (01/24/11) Home Med List: Aspirin 325 MG ECT 1 TAB PO DAILY HEART (Reported) Cephalexin 500 MG TAB 1 TAB PO Q6 Cellulitis please stop taking this medication after completing the complete course of antibiotics. Your last day of antibiotic is 04/12/15. Fiber (Fibro-Tabs) 1 TAB TAB 1 TAB PO DAILY SUPPLEMENT (Reported) Gabapentin (Neurontin) 100 MG CAP 2 CAP PO BID UNKNOWN (Reported) Glimepiride 1 MG TAB 1 TAB PO PRN DIABETES (Reported) Lisinopril 20 MG TAB 1 TAB PO BID BP (Reported) Magnesium Oxide (Unknown Strength) TAB 400 MG PO DAILY SUPPLEMENT (Reported) Metoprolol Tartrate (Lopressor) 25 MG TAB 1 TAB PO BID HEART (Reported) Morphine Sulfate 30 MG TAB 1 TAB PO TID PRN PAIN (Reported) Multivitamin (Multiple Vitamins) 1 TAB TAB 1 TAB PO DAILY SUPPLEMENT ( Reported) NORTRIPTYLINE HCL (Pamelor) 25 MG CAP 1 CAP PO QPM UNKNOWN (Reported) OMEGA-3/DHA/EPA/FISH OIL ([place]-3 Fish Oil 1,000 MG Sftg) 1,000 MG SGL 1 CAP PO DAILY SUPPLEMENT (Reported) OXYCODONE HCL/ACETAMINOPHEN (Percocet 7.5-325 MG Tablet) 325 MG/7.5 MG TAB 1 TAB PO 4 TIMES/DAY PRN PAIN Simvastatin 40 MG TAB 1 TAB PO QPM CHOLESTEROL (Reported) Past History Medical History Blood Transfusion Hx: No Neurological: NONE EENT: NONE 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 He is status post a dorsal column pain stimulator, prostate cancer status post prostatectomy and TURP, wrongful hammertoe repairs with toe amputation, status post MRSA infection, left total knee arthroplasty, herniorrhaphy, ACS s/p PCI,cellulitis Surgical History Pertinent Surgical History: hernia repair-inguinal, knee replacement (bilateral) , prostatectomy, Left great toe amputation status post hammertoe repair Family History Relations & Conditions If Any: Relation not specified for: No pertinent family history Psychosocial History Where Do You Live? Home Who Do You Live With? spouse Services at Home: None Primary Language: Romanian Smoking Status: Never Smoked ETOH Use: denies use Illicit Drug Use: denies illicit drug use Functional Ability ADLs Independent: dressing, eating, toileting, bathing. Ambulation: independent IADLs Independent: shopping, housework, finances, food prep, telephone, transportation , medication admin. Review of Systems Review of Systems: Condition denies headache, dizziness, cough, palpitation, diarrhea or constipation Exam & Diagnostic Data Vital Signs and I&O Vital Signs Date Time Temp Pulse Resp B/P B/P Pulse O2 O2 Flow FiO2 Mean Ox Delivery Rate 01/07 1606 99.1 73 18 110/60 95 Room Air 01/07 0919 110/50 01/07 0657 98.5 79 20 110/50 93 Room Air 01/06 2200 98.0 77 20 130/70 95 Room Air 01/06 2105 73 116/78 Intake & Output 01/07 1600 01/07 0800 01/07 0000 01/06 1600 01/06 0800 01/06 0000 Intake Total 289 893 2976 600 300 120 Output Total 500 700 400 400 Balance 320 -380 620 600 300 -280 Intake, IV 100 200 100 600 300 Intake, Oral 720 120 920 0 120 Output, Urine 500 700 400 400 Patient 285 lb Weight Physical Exam: Patient is alert and oriented 3 Lungs: Clear CV: Regular rate and rhythm Abdomen: Soft, nontender nondistended Extremities: Left foot is dressed. It is warm to touch. I'm unable to palpate pedal pulses bilaterally. There is palpable femoral pulses bilaterally. Assessment/Plan Assessment/Plan 76-year-old man with diabetes and other medical issues presented with nonhealing left foot ulcer. Given his nonpalpable pedal pulses, I would like him to get an arterial duplex. He may need an angiogram in the near future. I will follow with you closely. Thank you for asking me to be involved in the care of this patient. Consult Acknowledgment - Thank you for your consult request. Attending MD Review Statement Attending Statement Attending MD Statement: examined this patient, discuss w/resident/PA/MANAGER PRODUCT SUPPORT
--- NOTE | 2017-01-07 17:22 | PN- Podiatry ---
Subjective Subjective: Patient seen at bedside with no new complaints overnight. Patient denies foot pain. Patient denies nausea vomiting fever chills. Objective Vital Signs and I&Os Vital Signs Date Time Temp Pulse Resp B/P B/P Pulse O2 O2 Flow FiO2 Mean Ox Delivery Rate 01/07 1606 99.1 73 18 110/60 95 Room Air 01/07 0919 110/50 01/07 0657 98.5 79 20 110/50 93 Room Air 01/06 2200 98.0 77 20 130/70 95 Room Air 01/06 2105 73 116/78 Intake & Output 01/07 1600 01/07 0800 01/07 0000 01/06 1600 01/06 0800 01/06 0000 Intake Total 245 008 5173 600 300 120 Output Total 500 700 400 400 Balance 320 -380 620 600 300 -280 Intake, IV 100 200 100 600 300 Intake, Oral 720 120 920 0 120 Output, Urine 500 700 400 400 Patient 285 lb Weight Physical Exam: Dressing left foot dry and intact. Dry strikethrough identified at the distal portion of the dressing. No active bleeding identified. No pain with deep palpation bilateral lower extremities. Assessment/Plan Assessment/Plan Osteomyelitis left foot. Patient for arterial ultrasound. ID consult pending cultures. Vascular consult pending arterial ultrasound. Patient to the OR Thursday for revision and closure. Core Measures/Miscellaneous Venous Thromboembolism VTE Risk Factors: Age > 40, Immobility, paresis, Surgery VTE Contraindications: No Contraindications VTE Diagnosis: No Beta Jackie Is Beta Jackie a Home Med? Yes Antibiotics Is Patient on Antibiotics? Yes If Yes: infection Attending MD Review Statement Attending Statement Attending MD Statement: examined this patient
--- NOTE | 2017-01-07 19:07 | Cons- Infect Disease ---
General Information and HPI Consulting Request Date of Consult: 01/07/17 Requested By: GINO AGUIAR DPM Reason for Consult: Diabetic foot infection Source of Information: patient, primary team Exam Limitations: clinical condition History of Present Illness: 76-year-old gentleman with past medical history of hypertension, hyperlipidemia, diabetes, coronary artery disease status post stent placement 6 years ago who was recently been advised by his college associate Dr. Aguiar to come into the [facility] on 01/05/2017 due to a non healing ulcer. Approximately 6 weeks ago the patient developed an ulcer located on the plantar aspect of the left foot. He subsequently followed up with Dr Butler and Dr. Aguiar for a period of 6 weeks. The patient has undergone an extended course of conservative care, including local intensive wound care consisting of periodic weekly debridements and offloading with a total contact cast. Unfortunately, the patient's ulceration failed to improve and he developed a probing lesion with x-ray L foot findings suggestive of osteomyelitis to the second metatarsal head. He received oral abx (Augmentin) as outpatient. Prior to admission the patient did report subjective fever. Temperature was up to 101. He took some acetaminophen for symptomatic relief. He denies chills, chest pain, chest discomfort, shortness of breath, abdominal pain or abdominal discomfort. Currently patient afebrile, POD #1 while on empiric treatment w/ iv Unasyn started previous day. Allergies/Medications Allergies: Coded Allergies: NO KNOWN ALLERGIES (01/24/11) Home Med List: Aspirin 325 MG ECT 1 TAB PO DAILY HEART (Reported) Cephalexin 500 MG TAB 1 TAB PO Q6 Cellulitis please stop taking this medication after completing the complete course of antibiotics. Your last day of antibiotic is 04/12/15. Fiber (Fibro-Tabs) 1 TAB TAB 1 TAB PO DAILY SUPPLEMENT (Reported) Gabapentin (Neurontin) 100 MG CAP 2 CAP PO BID UNKNOWN (Reported) Glimepiride 1 MG TAB 1 TAB PO PRN DIABETES (Reported) Lisinopril 20 MG TAB 1 TAB PO BID BP (Reported) Magnesium Oxide (Unknown Strength) TAB 400 MG PO DAILY SUPPLEMENT (Reported) Metoprolol Tartrate (Lopressor) 25 MG TAB 1 TAB PO BID HEART (Reported) Morphine Sulfate 30 MG TAB 1 TAB PO TID PRN PAIN (Reported) Multivitamin (Multiple Vitamins) 1 TAB TAB 1 TAB PO DAILY SUPPLEMENT ( Reported) NORTRIPTYLINE HCL (Pamelor) 25 MG CAP 1 CAP PO QPM UNKNOWN (Reported) OMEGA-3/DHA/EPA/FISH OIL (Arion-3 Fish Oil 1,000 MG Sftg) 1,000 MG SGL 1 CAP PO DAILY SUPPLEMENT (Reported) OXYCODONE HCL/ACETAMINOPHEN (Percocet 7.5-325 MG Tablet) 325 MG/7.5 MG TAB 1 TAB PO 4 TIMES/DAY PRN PAIN Simvastatin 40 MG TAB 1 TAB PO QPM CHOLESTEROL (Reported) Current Medications: Current Medications Sig/Chan Start time Last Medication Dose Route Stop Time Status Admin Acetaminophen 650 MG Q6P PRN 01/06 0230 AC PO Ampicillin Sodium/ 3,000 MG Q6 01/06 1800 AC 01/07 Sulbactam Sodium IV 1229 Sodium Chloride 100 ML Aspirin Buffered 325 MG DAILY 01/07 1050 AC 01/07 PO 1230 Gabapentin 200 MG BID 01/05 2200 AC 01/07 PO 0919 Heparin Sodium 5,000 UNIT Q8 01/06 0600 AC 01/07 (Porcine) SC 1413 Insulin Aspart 0 TIDAC 01/07 1200 AC 01/07 SC 1230 Insulin Human Regular 0 Q6 01/06 0600 DC 01/06 SC 1214 Metoprolol Tartrate 25 MG BID 01/05 2200 AC 01/07 PO 0919 Morphine Sulfate 30 MG TID PRN 01/06 1445 AC 01/07 PO 1559 Morphine Sulfate 2 MG Q4P PRN 01/06 0230 AC 01/06 IV 0744 Multivitamins 1 TAB DAILY 01/06 1000 AC 01/07 PO 0919 Nortriptyline HCl 25 MG AT BEDTIME 01/05 2200 AC 01/06 PO 2105 Oxycodone/ 1 TAB Q6P PRN 01/05 1915 AC Acetaminophen PO Simvastatin 40 MG AT BEDTIME 01/05 2200 AC 01/06 PO 2107 Sodium Chloride 1,000 ML Q20H 01/07 1115 DC IV 01/08 0714 Past History Travel History Traveled to [place] past 21 day No Medical History Blood Transfusion Hx: No Neurological: NONE EENT: NONE Cardiovascular: CAD (status post stent 4 yrs [employer]), hypertension, hyperlipidemia, myocardial infarction, STENTS Respiratory: NONE Gastrointestinal: NONE, umbilical hernia Hepatic: NONE Renal: NONE Musculoskeletal: chronic back pain, osteoarthritis, IMPLANTED STIMULATOR/BACK Psychiatric: NONE Endocrine: diabetes Blood Disorders: NONE Cancer(s): prostate cancer, PROSTATE CANCER (status post radiation) 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 He is status post a dorsal column pain stimulator, prostate cancer status post prostatectomy and TURP, wrongful hammertoe repairs with toe amputation, status post MRSA infection, left total knee arthroplasty, herniorrhaphy, ACS s/p PCI,cellulitis History of MRSA: Yes History of VRE: No History of CDIFF: No Isolation History: Contact Pneumonia Vaccine: 01/02/14 Influenza Vaccine: 03/24/14 Surgical History Surgical History: hernia repair-inguinal, knee replacement (bilateral), prostatectomy, Left great toe amputation status post hammertoe repair Family History Relations & Conditions If Any: Relation not specified for: No pertinent family history Psychosocial History Where Do You Live? Home Who Do You Live With? spouse Services at Home: None Primary Language: Uzbek Smoking Status: Never Smoked ETOH Use: denies use Illicit Drug Use: denies illicit drug use Functional Ability ADLs Independent: dressing, eating, toileting, bathing. Ambulation: independent IADLs Independent: shopping, housework, finances, food prep, telephone, transportation , medication admin. Review of Systems Comments 12 points reviewed as noted; otherwise negative.The patient does have a history of urinary incontinence s/p prostate surgery. He denies any urinary frequency, dysuria or foul-smelling urine. He did report that his sensation in his bilateral lower extremities is currently limited; long-standing history of peripheral vascular disease. Exam & Diagnostic Data Last 24 Hrs of Vital Signs/I&O Vital Signs Date Time Temp Pulse Resp B/P B/P Pulse O2 O2 Flow FiO2 Mean Ox Delivery Rate 01/07 1606 99.1 73 18 110/60 95 Room Air 01/07 0919 110/50 01/07 0657 98.5 79 20 110/50 93 Room Air 01/06 2200 98.0 77 20 130/70 95 Room Air 01/06 2105 73 116/78 Intake & Output 01/07 1600 01/07 0800 01/07 0000 Intake Total 188 824 9811 Output Total 500 700 400 Balance 320 -380 620 Intake, IV 100 200 100 Intake, Oral 720 120 920 Output, Urine 500 700 400 Physical Exam Other Physical Findings: General Appearance: well developed/nourished, no apparent distress, alert, awake , comfortable Head: atraumatic, normal appearance Ears, Nose, Throat: normal pharynx, normal ENT inspection Respiratory: normal breath sounds, chest non-tender, no respiratory distress Cardiovascular: regular rate/rhythm Gastrointestinal: normal bowel sounds, soft, non-tender Back: normal inspection Extremities: normal capillary refill, normal range of motion, Left Foot > Right foot size. Some Generalized LLE edema noted. , Left Gluteal Implanatable Pain Modulator. L foot dressing on Neurologic: no motor deficits, awake, alert, oriented x 3 Skin: warm/dry Last 24 Hours of Lab Results: Laboratory Tests 01/07 1140 Chemistry Sodium (137 - 145 mmol/L) 136 L Potassium (3.5 - 5.1 mmol/L) 4.7 Chloride (98 - 107 mmol/L) 93 L Carbon Dioxide (22 - 30 mmol/L) 32 H Anion Gap (5 - 16) 10 BUN (9 - 20 mg/dL) 23 H Creatinine (0.7 - 1.2 mg/dL) 1.3 H Estimated GFR (>60 ml/min) 54 L BUN/Creatinine Ratio (7 - 25 %) 17.7 Hematology CBC w Diff NO MAN DIFF REQ WBC (4.8 - 10.8 /CUMM) 9.2 RBC (4.70 - 6.10 /CUMM) 4.31 L Hgb (14.0 - 18.0 G/DL) 12.4 L Hct (42 - 52 %) 37.1 L MCV (80.0 - 94.0 FL) 86.1 MCH (27.0 - 31.0 PG) 28.8 RDW (11.5 - 14.5 %) 14.3 Plt Count (130 - 400 /CUMM) 234 MPV (7.4 - 10.4 FL) 8.6 Gran % (42.2 - 75.2 %) 65.2 Lymphocytes % (20.5 - 51.1 %) 22.9 Monocytes % (1.7 - 9.3 %) 10.2 H Eosinophils % (0 - 5 %) 1.5 Basophils % (0.0 - 2.0 %) 0.2 Absolute Granulocytes (1.4 - 6.5 /CUMM) 6.0 Absolute Lymphocytes (1.2 - 3.4 /CUMM) 2.1 Absolute Monocytes (0.10 - 0.60 /CUMM) 0.9 H Absolute Eosinophils (0.0 - 0.7 /CUMM) 0.1 Absolute Basophils (0.0 - 0.2 /CUMM) 0 PUBS MCHC (33.0 - 37.0 G/DL) 33.5 Last 24 Hours of Yo Results: SPEC #: [id number] MONSERRAT: 01/06/17 STATUS: RECD RECD: 01/06/17 [facility] DR: GINO AGUIAR DPM SOURCE: EXTREMITIE ENTR: 01/06/[address]: BRITTNEY COLORADO,GAURI Mccartney SPDESC: FOOT LEFT ORDERED: XTRMOR COMMENT: ADDITIONAL INFORMATION: BONE Procedure Result XTRMOR PENDING Diagnostic Data Recent Imaging Findings: n/a Assessment/Plan Assessment/Plan Impression: 76-year-old gentleman with past medical history of hypertension, hyperlipidemia, diabetes, coronary artery disease status post stent placement 6 years ago admitted 01/05/2017. Infected diabetic non healing L foot ulcer. OP L foot X ray suggestive of steomyelitis to the second metatarsal head Post op day 1- s/p open incision and drainage of multiple sites on left foot, second ray resection left foot and excisional debridement Leukocytosis/resolved Elevated ESR (81 on 01/05) VALENTINA/CKD Suggestion: 1. F/U OR culture results to further guide abx treatment. 2. Trend CBC/BMP. ESR in am. 3. Continue empiric iv Unasyn 3 gm q 8 h (as kidney function improving) Consult Acknowledgment - Thank you for your consult request. Consult Acknowledgment - Thank you for your consult request.
[2017-01-07 21:23] VITALS: BP 130/70
[2017-01-08 08:01] VITALS: BP 144/66
[2017-01-08 08:04] LABS: ABSOLUTE BASOPHIL COUNT 0 /CUMM (0.0-0.2); ABSOLUTE EOSINOPHIL COUNT 0.4 /CUMM (0.0-0.7); ABSOLUTE LYMPH COUNT 2.6 /CUMM (1.2-3.4); ABSOLUTE MONOCYTE COUNT 0.7 /CUMM (0.10-0.60); BASOPHIL % 0.3 % (0.0-2.0); EOSINOPHIL % 4.7 % (0-5); GRANULOCYTE % 51.7 % (42.2-75.2); MEAN CORPUSCULAR HGB 28.9 PG (27.0-31.0); MEAN CORPUSCULAR HGB CONC 33.4 G/DL (33.0-37.0); MEAN CORPUSCULAR VOLUME 86.4 FL (80.0-94.0); MEAN PLATELET VOLUME 8.4 FL (7.4-10.4); PLATELET COUNT 245 /CUMM (130-400); RBC DISTRIBUTION WIDTH 13.9 % (11.5-14.5); WHITE BLOOD CELL COUNT 7.7 /CUMM (4.8-10.8)
--- NOTE | 2017-01-08 08:22 | PN- Gen Med ---
KOBE ROJO 01/08/17 0822: Assessment/Plan Assessment: Patient is a 76-year-old gentleman with past medical history significant for hypertension, hyperlipidemia, diabetes, coronary artery disease status post stent placement 6 years ago hasn't been admitted to [facility] under Dr. Giles's service for possible surgical intervention of the nonhealing ulcer with concerns of underlying osteomyelitis on 01/05/2017. We're doing medical consult for comanagement of hypertension and hyperlipidemia, diabetes and VALENTINA on CKD. Plan: Plan: 1. History of hypertension, hyperlipidemia, coronary artery disease * Will hold aspirin for tomorrow morning and resume after surgery. * Continue statins and metoprolol before surgery. * Avoid any QTC prolonging agents * Dr. Gibbs is following the patient 2. History of diabetes mellitus * Good blood glucose control ranging from 90s to 100 * We'll continue to hold oral hypoglycemic agents. * Hemoglobin A1c 6.6 * Continue with NPH insulin and insulin sliding scale * Accu-Cheks * Continue Diabteic diet 3 VALENTINA on CKD: * Stable but not improving per yesterday's labs; will check labs today * Continue to monitor BEP, CORNELIO inhibitors on hold * Continue gentle hydration as needed * avoid any nephrotoxic agents. 4. Nonhealing ulcer on the plantar aspect of the left foot with cellulitis and possible underlying osteomyelitis(suggested by x-ray, MRI cannot be obtained due to spine stimulator) * Post op day 2-following open incision and drainage of multiple sites on left foot, second ray resection left foot and excisional debridement * Patient is scheduled for reversion surgery tomorrow a.m. on Thursday. Was discussed with Dr. Suarez and we'll keep him nothing by mouth after 12 midnight * His specimen from our start growing gram-positive cocci and BETA strep group C. Results were discussed with Dr. Torres and we will start patient on vancomycin given previous history of MRSA till we will get the final cultures and sensitivities . * ID consult for antibiotic recommendations appreciated * Pain is adequately controlled * Continue pain management with IV morphine, oxycodone and Tylenol as per surgery * Repeat labs in AM * WIll order PT * Weight beaing recommendations per Dr. Suarez DVT prophylaxis subcutaneous heparin Patient is currently nothing by mouth Code status DNI Problem List: 1. Osteomyelitis 2. CKD (chronic kidney disease) 3. Cellulitis of left lower extremity DVT/Prophylaxis: pharmacological Subjective Follow-up For: Left foot osteomyelitis Diabetes type 2 Complaints: no complaints Subjective: Patient was seen and examined this morning. He was sitting comfortably on chair without any complaints. His foot was strapped in Cornelio bandage without any significant discharge. Patient is scheduled for reversion surgery tomorrow a.m. He remained afebrile with normal vital signs. Saturating fine on room air and was able to ambulate. Review of Systems Constitutional: Denies: diaphoresis, fever, malaise. Cardiovascular: Denies: chest pain, edema, orthopena. Respiratory: Denies: cough, hemoptysis, orthopnea. Gastrointestinal: Denies: constipation, diarrhea, distention. Genitourinary: Denies: frequency, hematuria. Objective Last 24 Hrs of Vital Signs/I&O Vital Signs Date Time Temp Pulse Resp B/P B/P Pulse O2 O2 Flow FiO2 Mean Ox Delivery Rate 01/08 0801 97.8 90 20 144/66 95 Room Air 01/07 2217 96 130/70 01/07 2123 98.2 96 20 130/70 96 01/07 1606 99.1 73 18 110/60 95 Room Air 01/07 0919 110/50 Intake & Output 01/08 1600 01/08 0800 01/08 0000 Intake Total 370 680 Output Total 350 650 Balance 20 30 Intake, IV 130 200 Intake, Oral 240 480 Number 1 Bowel Movements Output, Urine 350 650 Physical Exam General Appearance: Alert, Oriented X3, Cooperative Skin: left foot ulcer Cardiovascular: Regular Rate, Normal S1, Normal S2 Lungs: Normal Air Movement Abdomen: Soft, No Tenderness Current Medications: Current Medications Sig/Chan Start time Last Medication Dose Route Stop Time Status Admin Acetaminophen 650 MG Q6P PRN 01/06 0230 AC PO Ampicillin Sodium/ 3,000 MG Q8 01/07 2200 AC 01/08 Sulbactam Sodium IV 0645 Sodium Chloride 100 ML Ampicillin Sodium/ 3,000 MG Q6 01/06 1800 DC 01/07 Sulbactam Sodium IV 1924 Sodium Chloride 100 ML Aspirin Buffered 325 MG DAILY 01/07 1050 AC 01/07 PO 1230 Gabapentin 200 MG BID 01/05 2200 AC 01/07 PO 2216 Heparin Sodium 5,000 UNIT Q8 01/06 0600 AC 01/08 (Porcine) SC 0650 Insulin Aspart 0 TIDAC 01/07 1200 AC 01/07 MT 1230 Insulin Human Regular 0 Q6 01/06 0600 DC 01/06 SC 1214 Metoprolol Tartrate 25 MG BID 01/05 2200 AC 01/07 PO 2217 Morphine Sulfate 30 MG TID PRN 01/06 1445 AC 01/08 PO 0716 Morphine Sulfate 2 MG Q4P PRN 01/06 0230 AC 01/06 IV 0744 Multivitamins 1 TAB DAILY 01/06 1000 AC 01/07 PO 0919 Nortriptyline HCl 25 MG AT BEDTIME 01/05 220 AC 01/07 PO 2216 Oxycodone/ 1 TAB Q6P PRN 01/05 1915 AC Acetaminophen PO Simvastatin 40 MG AT BEDTIME 01/05 220 AC 01/07 PO 2219 Sodium Chloride 1,000 ML Q20H 01/07 1115 DC IV 01/08 0714 Last 24 Hrs of Labs/Mics: Laboratory Tests 01/08/17 0812: Sodium Pending, Potassium Pending, Chloride Pending, Carbon Dioxide Pending, Anion Gap Pending, BUN Pending, Creatinine Pending, BUN/Creatinine Ratio Pending 01/08/17 0640: CBC w Diff NO MAN DIFF REQ, RBC 4.40 L, MCV 86.4, MCH 28.9, RDW 13.9, MPV 8.4, Gran % 51.7, Lymphocytes % 33.9, Monocytes % 9.4 H, Eosinophils % 4.7, Basophils % 0.3, Absolute Granulocytes 4.0, Absolute Lymphocytes 2.6, Absolute Monocytes 0.7 H, Absolute Eosinophils 0.4, Absolute Basophils 0, PUBS MCHC 33.4 01/07/17 1140: Anion Gap 10, Estimated GFR 54 L, BUN/Creatinine Ratio 17.7, CBC w Diff NO MAN DIFF REQ, RBC 4.31 L, MCV 86.1, MCH 28.8, RDW 14.3, MPV 8.6, Gran % 65.2, Lymphocytes % 22.9, Monocytes % 10.2 H, Eosinophils % 1.5, Basophils % 0.2, Absolute Granulocytes 6.0, Absolute Lymphocytes 2.1, Absolute Monocytes 0.9 H, Absolute Eosinophils 0.1, Absolute Basophils 0, PUBS MCHC 33.5 QUYNH ESPARZA 01/08/17 1136: Attending Addendum Attending Brief Note Patient is admitted for left foot nonhealing plantar ulcer with cellulitis and osteomyelitis. Patient cannot get an MRI as his stimulator is not MRI compatible. Patient s/p debridement and bone cultures. Cardiology following, Resume aspirin as per podiatry. ID consulted follow culuteres abx as per ID. PICC line, Pain management. Diabetes management hold glimepiride, c/w insulin SS. Mild VALENTINA on CKD improved, resume lisinopril. Resume colchicine, gabapentin, metoprolol, nortriptyline and simvastatin. DVT prophylaxis. DNI. Consulted case management. Patient going for revision tomorrow as per podiatry, Dr Suarez, f/u podiatry. Patient transfered to medicine service for multiple comorbidities.
--- NOTE | 2017-01-08 09:18 | ULTRASOUND REPORT ---
EXAMINATION: US-BILAT LOW EXTR ARTERIAL DOP CLINICAL INFORMATION: Nonhealing ulcer left foot. COMPARISON: None TECHNIQUE: Real-time ultrasound and Doppler techniques (integrating B-mode 2-D vascular images, Doppler spectral analysis and color flow Doppler imaging) were utilized to interrogate the lower extremities. FINDINGS: Right lower extremity: Common femoral artery: 90 cm/sec; triphasic waveform Superficial femoral artery proximal: 75 cm/sec; triphasic waveform Superficial femoral artery mid portion: 100 cm/sec; triphasic waveform Superficial femoral artery distal: 96 cm/sec; triphasic waveform Profunda artery: 75 cm/sec; biphasic waveform Popliteal artery: 79 cm/sec; triphasic waveform Posterior tibial artery: 181 cm/sec; triphasic and biphasic waveform Anterior tibial artery: 181 cm/sec; triphasic and biphasic waveform Dorsalis pedis artery: 49 cm/sec; monophasic waveform Left lower extremity: Common femoral artery: 112 cm/sec; triphasic waveform Superficial femoral artery proximal: 105 cm/sec; triphasic waveform Superficial femoral artery mid portion: 118 cm/sec; triphasic waveform Superficial femoral artery distal: 106 cm/sec; triphasic waveform Profunda artery: 56 cm/sec; biphasic waveform Popliteal artery: 123 cm/sec; biphasic waveform Posterior tibial artery: 133 cm/sec; monophasic waveform Anterior tibial artery: 104 cm/sec; monophasic waveform Dorsalis pedis artery: 75 cm/sec; monophasic waveform ADDITIONAL FINDINGS: Scattered atherosclerotic plaque noted throughout the lower extremity arteries. IMPRESSION: Abnormal monophasic waveforms in the left below-knee arteries suggesting at least moderate underlying peripheral arterial disease. Greater sensitivity and specificity can be obtained with pre-and post exercise PVRs with GARRY calculations. Also consider dedicated CTA for further anatomical detail.
--- NOTE | 2017-01-08 15:05 | PN- Infect Dx ---
Subjective Subjective: No fever. Good appetite. No diarrhea. Review of Systems Comments: 12 points reviewed as noted, otherwise negative. Objective Last 24 Hrs of Vital Signs/I&O Vital Signs Date Time Temp Pulse Resp B/P B/P Pulse O2 O2 Flow FiO2 Mean Ox Delivery Rate 01/08 0925 90 144/66 01/08 0801 97.8 90 20 144/66 95 Room Air 01/07 2217 96 130/70 01/07 2123 98.2 96 20 130/70 96 01/07 1606 99.1 73 18 110/60 95 Room Air Intake & Output 01/08 1600 01/08 0800 01/08 0000 Intake Total 370 680 Output Total 350 650 Balance 20 30 Intake, IV 130 200 Intake, Oral 240 480 Number 1 Bowel Movements Output, Urine 350 650 Physical Exam Other Physical Findings: General Appearance: well developed/nourished, no apparent distress, alert, awake , comfortable Head: atraumatic, normal appearance Ears, Nose, Throat: normal pharynx Respiratory: normal breath sounds, chest non-tender, no respiratory distress Cardiovascular: regular rate/rhythm, S1 S2 present Gastrointestinal: normal bowel sounds, soft, non-tender Back: normal inspection Extremities: no edema; L foot dressing on Neurologic: no motor deficits, awake, alert, oriented x 3 Skin: warm/dry Results Last 24 Hours of Lab Results: Laboratory Tests 01/08 01/08 0812 0640 Chemistry Sodium (137 - 145 mmol/L) 137 Potassium (3.5 - 5.1 mmol/L) 4.1 Chloride (98 - 107 mmol/L) 95 L Carbon Dioxide (22 - 30 mmol/L) 30 Anion Gap (5 - 16) 11 BUN (9 - 20 mg/dL) 20 Creatinine (0.7 - 1.2 mg/dL) 1.3 H Estimated GFR (>60 ml/min) 54 L BUN/Creatinine Ratio (7 - 25 %) 15.4 Hematology CBC w Diff NO MAN DIFF REQ WBC (4.8 - 10.8 /CUMM) 7.7 RBC (4.70 - 6.10 /CUMM) 4.40 L Hgb (14.0 - 18.0 G/DL) 12.7 L Hct (42 - 52 %) 38.0 L MCV (80.0 - 94.0 FL) 86.4 MCH (27.0 - 31.0 PG) 28.9 RDW (11.5 - 14.5 %) 13.9 Plt Count (130 - 400 /CUMM) 245 MPV (7.4 - 10.4 FL) 8.4 Gran % (42.2 - 75.2 %) 51.7 Lymphocytes % (20.5 - 51.1 %) 33.9 Monocytes % (1.7 - 9.3 %) 9.4 H Eosinophils % (0 - 5 %) 4.7 Basophils % (0.0 - 2.0 %) 0.3 Absolute Granulocytes (1.4 - 6.5 /CUMM) 4.0 Absolute Lymphocytes (1.2 - 3.4 /CUMM) 2.6 Absolute Monocytes (0.10 - 0.60 /CUMM) 0.7 H Absolute Eosinophils (0.0 - 0.7 /CUMM) 0.4 Absolute Basophils (0.0 - 0.2 /CUMM) 0 PUBS MCHC (33.0 - 37.0 G/DL) 33.4 Last 24 Hours of Yo Results: EC #: [id number] MONSERRAT: 01/06/17 STATUS: RES RECD: 01/06/[address]: GINO AGUIAR DPM [facility] DR: BRITTNEY COLORADO,GAURI Mccartnye SPDESC: FOOT LEFT ORDERED: XTRMOR COMMENT: ADDITIONAL INFORMATION: BONE Procedure Result > GRAM STAIN Final 01/07/17-2035 WHITE BLOOD CELLS NONE GRAM POSITIVE COCCI MANY IN CHAINS OTHER AFTER OVERNIGHT INCUBATION IN THIO BROTH > EXTREMITIES OR SPECIMEN Preliminary 01/08/17-08 AFTER OVERNIGHT INCUBATION IN THIO BROTH: 1. BETA STREP GROUP C Penicillin and Ampicillin are drugs of choice for beta-hemolytic streptococcal infections. Susceptibility testing of penicillins and other beta-lactams are not routinely performed because non-susceptible isolates have only rarely been reported. Note: If patient is allergic to Penicillin, the laboratory can perform Clindamycin testing upon request. Please call within 5 days of final report. 2. 2ND GRAM POSITIVE COCCI Identification and sensitivities to follow Called to/Readback by CASEY by KRIS 01/08/17 0852 Recent Imaging Studies: Arterial SUplex US 01/08/17: IMPRESSION: Abnormal monophasic waveforms in the left below-knee arteries suggesting at least moderate underlying peripheral arterial disease. Greater sensitivity and specificity can be obtained with pre-and post exercise PVRs with GARRY calculations. Also consider dedicated CTA for further anatomical detail. DICTATED BY: JOSEY WEI DO DATE/TIME DICTATED:01/08/17850 CAGE MANAGER:SRINIVAS DATE/TIME TRANSCRIBED:01/08/17850 Assessment/Plan Impression: 76-year-old gentleman with past medical history of hypertension, hyperlipidemia, diabetes, coronary artery disease status post stent placement 6 years ago admitted 01/05/2017. Polymicrobial infection diabetic non healing L foot ulcer; h/o MRSA colonization OP L foot X ray suggestive of osteomyelitis to the second metatarsal head Post op day 2- s/p open incision and drainage of multiple sites on left foot, second ray resection left foot and excisional debridement Leukocytosis/resolved Elevated ESR (81 on 01/05) VALENTINA/CKD Suggestion: 1. F/U final OR culture results to further guide abx treatment; preliminary Strep gr. C and another GPC (ID pnd. possibly MRSA) 2. Trend CBC/BMP. 3. Continue empiric iv Unasyn 3 gm q 8 h (as kidney function improved) and iv vancomycin added today (verify dosing w/ pharmacy); goal trough 15-20.
[2017-01-08 15:21] VITALS: BP 132/78
--- NOTE | 2017-01-08 17:49 | PN- Vascular Surgery ---
Surgical Brief Attending Note Brief Attending Note: No new events since her last saw the patient He is on a scheduled for left foot debridement by Dr. Rousseau tomorrow I also have him on the schedule for left leg angiogram which is scheduled at 1 PM. The surgical PA is aware and we'll preop the patient for tomorrow. Thank you
--- NOTE | 2017-01-08 19:38 | PN- Podiatry ---
Subjective Subjective: Patient seen at bedside with no new complaints. Denies nausea, vomiting, fever or chills. No pain left foot. Objective Vital Signs and I&Os Vital Signs Date Time Temp Pulse Resp B/P B/P Pulse O2 O2 Flow FiO2 Mean Ox Delivery Rate 01/08 1521 98.1 80 20 132/78 97 Room Air 01/08 0925 90 144/66 01/08 0801 97.8 90 20 144/66 95 Room Air 01/07 2217 96 130/70 01/07 2123 98.2 96 20 130/70 96 Intake & Output 01/08 1600 01/08 0800 01/08 0000 01/07 1600 01/07 0800 01/07 0000 Intake Total 750 370 680 152 328 8752 Output Total 350 650 500 700 400 Balance 750 20 30 320 -380 620 Intake, IV 350 130 200 100 200 100 Intake, Oral 400 240 480 720 120 920 Number 1 Bowel Movements Output, Urine 350 650 500 700 400 Physical Exam: Dressing intact. No pain with deep palpation bilateral lower extremities. Assessment/Plan Assessment/Plan Left foot osteomyelitis. Patient to OR tomorrow for revision and closure. Core Measures/Miscellaneous Venous Thromboembolism VTE Risk Factors: Age > 40, Immobility, paresis, Surgery VTE Contraindications: No Contraindications VTE Diagnosis: No Beta Jackie Is Beta Jackie a Home Med? Yes Antibiotics Is Patient on Antibiotics? Yes If Yes: infection Attending MD Review Statement Attending Statement Attending MD Statement: examined this patient
[2017-01-08 22:00] VITALS: BP 140/80
--- NOTE | 2017-01-09 07:17 | PN- Housestaff ---
LION FARNSWORTH 01/09/17 0716: Subjective Follow-up For: Nonhealing ulcer on the plantar aspect of the left foot with cellulitis and possible underlying osteomyelitis Status post open incision and drainage Status post revision surgery Complaints: pain scale (0-10) Tele-Events Since Last Visit: not on tele monitor Subjective: Ration was seen and examined this morning. He is alert awake and oriented to time place and person. No acute events noticed overnight. He does report 5 out of 10 pain left foot. waiting for the pain medication. Denied any fever or chills. Denies any other complaints. Vitals stable. Remained afebrile Review of Systems Constitutional: Reports: see HPI. Objective Last 24 Hrs of Vital Signs/I&O Vital Signs Date Time Temp Pulse Resp B/P B/P Pulse O2 O2 Flow FiO2 Mean Ox Delivery Rate 01/09 0825 142/64 01/09 0735 98.5 85 20 142/64 98 Room Air 01/08 2200 97.4 78 20 140/80 96 Room Air 01/08 2142 82 140/80 01/08 1521 98.1 80 20 132/78 97 Room Air Intake & Output 01/09 1600 01/09 0800 01/09 0000 Intake Total 600 200 Output Total Balance 600 200 Intake, IV 600 Intake, Oral 200 Physical Exam General Appearance: Alert, Oriented X3, Cooperative, No Acute Distress Skin: left foot ulcer HEENT: Atraumatic, PERRLA, EOMI, Mucous Membr. moist/pink Neck: Supple, No JVD, No thryomegaly Lymphatic: Cervical nl Cardiovascular: Normal S1, Normal S2 Lungs: Normal Air Movement Abdomen: Normal Bowel Sounds, Soft, No Tenderness Neurological: Normal Speech, Strength at 5/5 X4 Ext, Normal Tone, Sensation Intact Extremities: No Clubbing, No Cyanosis, No Edema Vascular: Pulses Symmetrical Current Medications: Current Medications Sig/Chan Start time Last Medication Dose Route Stop Time Status Admin Acetaminophen 650 MG Q6P PRN 01/06 0230 AC PO Ampicillin Sodium/ 3,000 MG Q8 01/07 2200 AC 01/09 Sulbactam Sodium IV 1253 Sodium Chloride 100 ML Aspirin Buffered 325 MG DAILY 01/07 1050 DC 01/08 PO 01/09 0800 0924 Gabapentin 200 MG BID 01/05 2200 AC 01/09 PO 0825 Heparin Sodium 5,000 UNIT Q8 01/06 0600 AC 01/08 (Porcine) SC 1438 Insulin Aspart 0 TIDAC 01/07 1200 AC 01/08 SC 1551 Metoprolol Tartrate 25 MG BID 01/05 2200 AC 01/09 PO 0825 Morphine Sulfate 30 MG TID PRN 01/06 1445 AC 01/09 PO 0824 Morphine Sulfate 2 MG Q4P PRN 01/06 0230 AC 01/08 IV 1116 Multivitamins 1 TAB DAILY 01/06 1000 AC 01/08 PO 0924 Nortriptyline HCl 25 MG AT BEDTIME 01/05 2200 AC 01/08 PO 2141 Oxycodone/ 1 TAB Q6P PRN 01/05 1915 AC Acetaminophen PO Simvastatin 40 MG AT BEDTIME 01/05 220 AC 01/08 PO 2200 Sodium Chloride 1,000 ML Q20H 01/08 2300 AC 01/09 IV 0000 Vancomycin HCl 1,000 MG Q12 01/08 1000 AC 01/09 Sodium Chloride 250 ML IV 0826 Last 24 Hrs of Lab/Yo Results Last 24 Hrs of Labs/Mics: Laboratory Tests 01/09/17 1250: Anion Gap 9, Estimated GFR > 60, BUN/Creatinine Ratio 12.7, PT 13.3 H, INR 1.27 H 01/09/17 0626: CBC w Diff NO MAN DIFF REQ, RBC 3.91 L, MCV 85.8, MCH 29.0, RDW 14.2, MPV 8.2, Gran % 70.7, Lymphocytes % 17.4 L, Monocytes % 6.8, Eosinophils % 4.8, Basophils % 0.3, Absolute Granulocytes 5.5, Absolute Lymphocytes 1.4, Absolute Monocytes 0.5, Absolute Eosinophils 0.4, Absolute Basophils 0, PUBS MCHC 33.8 Assessment/Plan Assessment: Patient is a 76-year-old gentleman with past medical history significant for hypertension, hyperlipidemia, diabetes, coronary artery disease status post stent placement 6 years ago, chronic kidney disease stage III, peripheral neuropathy, prostate cancer status post prostatectomy, gout, left great toe amputation, MRSA infection has been admitted to [facility] under Dr. Giles's service for possible surgical intervention of the nonhealing ulcer with concerns of underlying osteomyelitis on 01/05/2017. Vitals on admission were stable. Pertinent labs on admission leukocytosis 12.8. H&H is stable. ESR is elevated at 81. BUN 34 and creatinine 1.7. foot xray The new erosions of the second metatarsal head are suspicious for osteomyelitis. Note that the base of the proximal phalanx of the second toe is suboptimally evaluated due to its overlap with the metatarsal head.. 1. Nonhealing ulcer on the plantar aspect of the left foot with cellulitis and possible underlying osteomyelitis(suggested by x-ray, MRI cannot be obtained due to spine stimulator) He was advised by his butter maker Dr. Rousseau to come into the [facility] on 01/05/2017 due to a non healing ulcer. Approximately 6 weeks ago the patient developed an ulcer located on the plantar aspect of the left foot. He subsequently followed up with Dr Butler and Dr. Rousseau for a period of 6 weeks. The patient has undergone an extended course of conservative care, including local intensive wound care consisting of periodic weekly debridements and offloading with a total contact cast. Unfortunately, the patient's ulceration failed to improve and he developed a probing lesion with x-ray L foot findings suggestive of osteomyelitis to the second metatarsal head. He received oral abx (Augmentin) as outpatient. * Left foot cellulitis with osteomyelitis in the setting of a nonhealing neuropathic ulcer. Patient admitted for an initial debridement and cultures. * open incision and drainage deep to the deep fascia with exposure of the extensor and flexor tendon and tendon sheath multiple sites left foot, second ray resection left foot, excisional debridement - 01/06/2017 * Patient was started on IV Unasyn 3000 g every 6 hours- DAY3 * specimen from OR growing gram-positive cocci and BETA strep group C. Results were discussed with Dr. Torres and started patient on vancomycin given previous history of MRSA till we will get the final cultures and sensitivities . * On IV vancomycin day 2 Pending culture and sensitivities * Patient is scheduled for reversion surgery on 01/09/2017. * ID consult for antibiotic recommendations appreciated * Pain is adequately controlled * Continue pain management with IV morphine, oxycodone and Tylenol as per surgery * Repeat labs in AM * WIll order PT * Weight beaing recommendations per Dr. Suarez 2. History of hypertension, hyperlipidemia, coronary artery disease * Will hold aspirin for NOW and resume after surgery. * Continue statins and metoprolol. * Avoid any QTC prolonging agents * Dr. Gibbs is following the patient 3. History of diabetes mellitus * Good blood glucose control ranging from 90s to 100 * We'll continue to hold oral hypoglycemic agents. * Hemoglobin A1c 6.6 * Continue with NPH insulin and insulin sliding scale * Accu-Cheks * Continue Diabteic diet 4 VALENTINA on CKD: * Continue to monitor BEP * Continue gentle hydration as needed * avoid any nephrotoxic agents. * Creatinine improved 1.1 from 1.7 5. Peripheral artery disease Given his nonpalpable pedal pulses, an arterial duplex was ordered. Abnormal monophasic waveforms in the left below-knee arteries suggesting at least moderate underlying peripheral arterial disease. Greater sensitivity and specificity can be obtained with pre-and post exercise PVRs with GARRY calculations. * gOing for angiogram 01/09/2017 * Follow-up vascular surgery recommendations DVT prophylaxis subcutaneous heparin Code status DNI,DNR Problem List: 1. Cellulitis of left lower extremity 2. CKD (chronic kidney disease) 3. VALENTINA (acute kidney injury) Pain Ratin Pain Location: left foot Pain Goal: Remain pain free Pain Plan: cinthia Tomorrow's Labs & Rationales: cbc bep QUYNH ESPARZA 01/09/17 1214: Attending MD Review Statement Attending Statement Attending MD Statement: examined this patient, discuss w/resident/PA/HEEL SEAT FITTER, agreed w/resident/PA/HEEL SEAT FITTER, discussed with family, reviewed EMR data (avail), discussed with nursing, discussed with case mgmt, reviewed images, amended to note Attending Assessment/Plan: Patient is admitted for left foot nonhealing plantar ulcer with cellulitis and osteomyelitis. Patient cannot get an MRI as his stimulator is not MRI compatible. Patient s/p debridement and bone cultures. Cardiology risk stratification obtained. ID consulted follow culuteres abx as per ID. PICC line, Pain management. Diabetes management hold glimepiride, c/w insulin SS. Patient is NPO, for debridement as per Dr Suarez today. Resume aspirin as per podiatry. Angiogram for PVD as per vascular surgery today. f/u results and further management. Patient is on gentle hydration to prevent contrast induced nephropathy. monitor BMP. Resume colchicine, gabapentin, metoprolol, nortriptyline and simvastatin. DVT prophylaxis. DNI. Consulted case management.
[2017-01-09 07:35] VITALS: BP 142/64
[2017-01-09 08:18] LABS: ABSOLUTE BASOPHIL COUNT 0 /CUMM (0.0-0.2); ABSOLUTE EOSINOPHIL COUNT 0.4 /CUMM (0.0-0.7); ABSOLUTE GRANULOCYTE CT 5.5 /CUMM (1.4-6.5); ABSOLUTE LYMPH COUNT 1.4 /CUMM (1.2-3.4); ABSOLUTE MONOCYTE COUNT 0.5 /CUMM (0.10-0.60); BASOPHIL % 0.3 % (0.0-2.0); EOSINOPHIL % 4.8 % (0-5); GRANULOCYTE % 70.7 % (42.2-75.2); HEMATOCRIT 33.6 % (42-52); MEAN CORPUSCULAR HGB CONC 33.8 G/DL (33.0-37.0); MEAN CORPUSCULAR VOLUME 85.8 FL (80.0-94.0); MEAN PLATELET VOLUME 8.2 FL (7.4-10.4); PLATELET COUNT 247 /CUMM (130-400); RBC DISTRIBUTION WIDTH 14.2 % (11.5-14.5); RED BLOOD CELL CT 3.91 /CUMM (4.70-6.10); WHITE BLOOD CELL COUNT 7.8 /CUMM (4.8-10.8)
[2017-01-09 13:21] LABS: PT 13.3 SEC (9.4-12.5)
--- NOTE | 2017-01-09 16:12 | Operative Report ---
Operative/Inv Procedure Report Surgery Date: 01/09/17 Name of Procedure: 1 open incision and drainage deep to the deep fascia with exposure of the extensor and flexor tendon and tendon sheath multiple sites left foot 2 delayed primary closure of open surgical wound with local random advancement flap 3 revisional partial second ray resection left foot 4 intraoperative administration of ankle block anesthesia 5 excisional debridement Pre-Operative Diagnosis: 1 open necrotic wound left foot 2 osteomyelitis left foot 3 diabetic peripheral neuropathy Post-Operative Diagnosis: The same Estimated Blood Loss: less than 50ml Surgeon/Staffing Operations Manager: GINO AGUIAR DPM Anesthesia: moderate sedation, block Operative/Procedure Note Note: After obtaining informed consent the patient was brought to the operating room and placed on the operating table in the supine position. The patient was then securely fastened to the operating table utilizing safety belt. After administration of IV sedation, 10 mL of 0.5% Marcaine plain was infiltrated about the patient's left ankle. The patient underwent a vascular procedure consisting of an angiogram. This demonstrated three-vessel runoff to the lower extremity. Next, the left foot and ankle were scrubbed prepped and draped in usual aseptic manner. Attention was directed to the left foot, where a large full-thickness necrotic was identified. A 15 blade was utilized sharply revised skin margins. The dissection was then carried down deep to the D fashion with exposure of the extensor and flexor tendon and tendon sheath multiple sites left foot. All necrotic nonviable infected tissue sharply evacuated from the wound bed. Dissection and continued down to the stump of the second metatarsal, with the periosteum was incised reflected. Sagittal bone saw was utilized to perform a through and through osteotomy in the distal osseous segment was freed and passed from the operative field. Specimen sent for pathologic inspection. Nipple was then irrigated with 3 L of normal sterile saline fissure 50,000 units of bacitracin. Following this the foot was redraped and the surgeon's top was changed clean gloves. Any bleeding vessels identified were cauterized or ligated as encountered. The deep tissues were then coapted with 2-0 Vicryl utilizing simple interrupted stitches. Next, the skin edges were coapted with 2 -0 nylon. The incision was then dressed with Xeroform 4 x 4's Kerlix and an Cornelio wrap. The patient is noted tolerate both procedure and anesthesia well and the patient was transported from the operating room to recovery by sent stable best assess intact to the medial lateral flaps.
--- NOTE | 2017-01-09 16:21 | Operative Report ---
Operative/Inv Procedure Report Surgery Date: 01/09/17 Name of Procedure: -Ultrasound-guided right common femoral artery access -Aortogram -Third order left leg angiogram Pre-Operative Diagnosis: Nonhealing left foot wound Post-Operative Diagnosis: Same Estimated Blood Loss: scant Surgeon/Veneer Stock Layer: GÓMEZ MIRELES MD Anesthesia: moderate sedation Operative/Procedure Note Note: 76-year-old gentleman with diabetes presented with chronic nonhealing wound of left foot. Arterial ultrasound showed diseased tibial vessels. There was no palpable pedal pulses. The patient was scheduled for left leg angiogram with possible interventions. The nature of the procedure including its possible complication including but not limited to bleeding, infection, blood clots, injury to vessels, and need for re-intervention were discussed. An informed consent was obtained. The patient was taken to the operating room and placed supine on the table. A timeout was called according to protocol. After satisfactory induction of anesthesia, the patient was prepped and draped in standard surgical fashion. An ultrasound, right common femoral artery was accessed using micropuncture technique. A Bentson wire was advanced into the aorta under direct fluoroscopic guidance. The micropuncture sheath was then exchanged with a short 5 Ugandan sheath. Then an Omni Flush catheter was advanced over the wire and placed into the abdominal aorta. From this position, an aortogram was performed with findings outlined below. Then using the Omni Flush catheter and Bentson wire, the artery system was selected. The Omni Flush catheter was then exchanged with 65 cm 5 Ugandan glide catheter. The catheter was then advanced over the wire under direct fluoroscopic guidance and was placed in the proximal left common femoral artery. From this position, left leg angiogram was performed with findings outlined below. Using the glide catheter and a Bentson wire, the middle SFA was then selected. The glide catheter was advanced over the wire and placed into the mid SFA. From this position, her left leg angiogram was performed with findings outlined below. Then wires and catheters were removed. Exoseal device was used to close the puncture site. 5 minutes of manual pressure was applied. Then sterile dressing was applied. Dr. Rousseau then came to perform his part of the procedure. The details of this part of the procedure, please refer to Dr. Rousseau notes. Radiographic findings: -Patent aorta with no significant disease. -Patent bilateral common iliac, external iliac, and internal iliac arteries with no significant disease. Left common and external iliac arteries are tortuous. -Patent left common femoral and profunda femoris with no significant disease. SFAs patent without significant disease. -Patent popliteal artery, anterior tibial, tibial peroneal trunk Selin peroneal and posterior tibial artery. There is three-vessel runoff to the foot. There is mild disease in the midsegment of the posterior tibial artery.
--- NOTE | 2017-01-09 16:49 | RADIOLOGY REPORT ---
EXAMINATION: INTRAOPERATIVE FLUOROSCOPY DURING LEFT LOWER EXTREMITY ANGIOGRAM CLINICAL INDICATION: Nonhealing left foot ulcer. COMPARISON: None. TECHNIQUE: The procedure was performed by Dr. Watson in the operating room. FLUOROSCOPY TIME: 5 minutes 22 seconds. FINDINGS/IMPRESSION:: Intraoperative fluoroscopy was utilized by Dr. Watson during abdominal aortogram and left lower extremity angiogram. Please refer to the operative report for a detailed description of the procedure and the real-time findings made and acted upon by the surgeon.
[2017-01-09 18:27] VITALS: BP 158/70
--- NOTE | 2017-01-09 22:31 | PN- Vascular Surgery ---
Subjective Subjective: Pt is POD #0 s/p diagnostic LLE angiogram (via R groin site). He has no major complaints at this time. Denies pain at this time, but he was recently medicated. Tolerating po. Has been OOB to commode to have BM. Objective Vital Signs and I&Os Vital Signs Date Time Temp Pulse Resp B/P B/P Pulse O2 O2 Flow FiO2 Mean Ox Delivery Rate 01/09 2123 168/70 01/09 2123 168/70 01/09 1827 73 18 158/70 99 Room Air 01/09 0825 142/64 01/09 0735 98.5 85 20 142/64 98 Room Air Intake & Output 01/09 1600 01/09 0800 01/09 0000 01/08 1600 01/08 0800 01/08 0000 Intake Total 750 600 200 750 370 680 Output Total 350 350 650 Balance 400 600 200 750 20 30 Intake, IV 750 600 350 130 200 Intake, Oral 0 200 400 240 480 Number 1 Bowel Movements Output, Urine 350 350 650 Physical Exam: Gen: Pt is awake and alert. NAD. Oriented. Ext: Right groin site dressing is c/d/i without drainage or evidence of hematoma. Thigh is soft. LLE is warm. Dressing in place over the L foot was left in place. Assessment/Plan Assessment/Plan Pt is a 76 yo M who is POD #0 s/p LLE angiogram. No evidence of hematoma. Ok to advance diet as tolerated. Pt should avoid excessive bending x 24 hours. Ok to ambulate as desired or per podiatry recommendations.
[2017-01-09 22:56] VITALS: BP 168/70
--- NOTE | 2017-01-10 06:43 | PN- Housestaff ---
See Addendum Subjective Follow-up For: Nonhealing ulcer on the plantar aspect of the left foot with cellulitis and possible underlying osteomyelitis Status post open incision and drainage Status post revision surgery pad s/p angiogram Complaints: pain scale (0-10) Tele-Events Since Last Visit: not on tele monitor Subjective: patient was seen and examined this morning. He is alert awake and oriented to time place and person. No acute events noticed overnight. Status post revision surgery Status post angiogram He does report very mild pain left foot. Denied any fever or chills. Denies any other complaints. Vitals stable. Remained afebrile Review of Systems Constitutional: Reports: see HPI. Objective Last 24 Hrs of Vital Signs/I&O Vital Signs Date Time Temp Pulse Resp B/P B/P Pulse O2 O2 Flow FiO2 Mean Ox Delivery Rate 01/10 0717 98.1 68 20 116/50 94 Room Air 01/09 2256 98.7 89 20 168/70 98 Room Air 01/09 2123 168/70 01/09 2123 168/70 01/09 1827 73 18 158/70 99 Room Air 01/09 0825 142/64 Intake & Output 01/10 0800 01/10 0000 01/09 1600 Intake Total 300 590 750 Output Total 350 200 350 Balance -50 390 400 Intake, IV 100 350 750 Intake, Oral 200 240 0 Number 1 Bowel Movements Output, Urine 350 200 350 Physical Exam General Appearance: Alert, Oriented X3, Cooperative, No Acute Distress Skin: No Rashes, left foot debridement dressing intact HEENT: Atraumatic, PERRLA, EOMI, Mucous Membr. moist/pink Neck: Supple, No JVD Lymphatic: Cervical nl Cardiovascular: Normal S1, Normal S2 Lungs: Normal Air Movement Abdomen: Normal Bowel Sounds, Soft, No Tenderness, No Hepatospenomegaly Neurological: Normal Speech, Strength at 5/5 X4 Ext, Normal Tone, Cranial Nerves 3-12 NL Extremities: No Clubbing, No Cyanosis, No Edema Vascular: Normal Pulses, Pulses Symmetrical Current Medications: Current Medications Sig/Chan Start time Last Medication Dose Route Stop Time Status Admin Acetaminophen 650 MG Q6P PRN 01/06 0230 AC PO Ampicillin Sodium/ 3,000 MG Q8 01/07 2200 AC 01/10 Sulbactam Sodium IV 0652 Sodium Chloride 100 ML Aspirin 325 MG DAILY 01/10 1000 AC PO Aspirin Buffered 325 MG DAILY 01/07 1050 DC 01/08 PO 01/09 0800 0924 Fentanyl Citrate 200 MCG .STK-MED ONE 01/09 1244 DC IM 01/09 1245 Gabapentin 200 MG BID 01/05 2200 AC 01/09 PO 2123 Heparin Sodium 5,000 UNIT Q8 01/06 0600 AC 01/10 (Porcine) SC 0652 Insulin Aspart 0 TIDAC 01/07 1200 AC 01/08 SC 1551 Lisinopril 20 MG BID 01/09 2200 AC 01/09 PO 212 Metoprolol Tartrate 25 MG BID 01/05 2200 AC 01/09 PO 2123 Midazolam HCl 2 MG .STK-MED ONE 01/09 1245 DC IM 01/09 1246 Morphine Sulfate 30 MG TID PRN 01/06 1445 AC 01/09 PO 2011 Morphine Sulfate 2 MG Q4P PRN 01/06 0230 AC 01/09 IV 2140 Multivitamins 1 TAB DAILY 01/06 1000 AC 01/08 PO 0924 Nortriptyline HCl 25 MG AT BEDTIME 01/05 2200 AC 01/09 PO 2123 Oxycodone/ 1 TAB Q6P PRN 01/05 1915 AC 01/10 Acetaminophen PO 0017 Simvastatin 40 MG AT BEDTIME 01/05 2200 AC 01/09 PO 2124 Sodium Chloride 1,000 ML Q20H 01/08 2300 DC 01/09 IV 0000 Vancomycin HCl 1,000 MG Q12 01/08 1000 AC 01/09 Sodium Chloride 250 ML IV 2222 Last 24 Hrs of Lab/Yo Results Last 24 Hrs of Labs/Mics: Laboratory Tests 01/10/17 0710: Sodium Pending, Potassium Pending, Chloride Pending, Carbon Dioxide Pending, Anion Gap Pending, BUN Pending, Creatinine Pending, BUN/Creatinine Ratio Pending , CBC w Diff Pending, WBC Pending, RBC Pending, Hgb Pending, Hct Pending, MCV Pending, MCH Pending, RDW Pending, Plt Count Pending, MPV Pending, PUBS MCHC Pending 01/09/17 1250: Anion Gap 9, Estimated GFR > 60, BUN/Creatinine Ratio 12.7, PT 13.3 H, INR 1.27 H Assessment/Plan Assessment: Patient is a 76-year-old gentleman with past medical history significant for hypertension, hyperlipidemia, diabetes, coronary artery disease status post stent placement 6 years ago, chronic kidney disease stage III, peripheral neuropathy, prostate cancer status post prostatectomy, gout, left great toe amputation, MRSA infection has been admitted to [facility] under Dr. Giles's service for possible surgical intervention of the nonhealing ulcer with concerns of underlying osteomyelitis on 01/05/2017. Vitals on admission were stable. Pertinent labs on admission leukocytosis 12.8. H&H is stable. ESR is elevated at 81. BUN 34 and creatinine 1.7. foot xray The new erosions of the second metatarsal head are suspicious for osteomyelitis. Note that the base of the proximal phalanx of the second toe is suboptimally evaluated due to its overlap with the metatarsal head.. 1. Nonhealing ulcer on the plantar aspect of the left foot with cellulitis and possible underlying osteomyelitis(suggested by x-ray, MRI cannot be obtained due to spine stimulator) He was advised by his contract forester Dr. Rousseau to come into the [facility] on 01/05/2017 due to a non healing ulcer. Approximately 6 weeks ago the patient developed an ulcer located on the plantar aspect of the left foot. He subsequently followed up with Dr Butler and Dr. Rousseau for a period of 6 weeks. The patient has undergone an extended course of conservative care, including local intensive wound care consisting of periodic weekly debridements and offloading with a total contact cast. Unfortunately, the patient's ulceration failed to improve and he developed a probing lesion with x-ray L foot findings suggestive of osteomyelitis to the second metatarsal head. He received oral abx (Augmentin) as outpatient. * Left foot cellulitis with osteomyelitis in the setting of a nonhealing neuropathic ulcer. Patient admitted for an initial debridement and cultures. * open incision and drainage deep to the deep fascia with exposure of the extensor and flexor tendon and tendon sheath multiple sites left foot, second ray resection left foot, excisional debridement - 01/06/2017 * Patient was started on IV Unasyn 3000 g every 6 hours- DAY4 * specimen from OR growing gram-positive cocci and BETA strep group C. Results were discussed with Dr. Torres and started patient on vancomycin given previous history of MRSA till we will get the final cultures and sensitivities . * On IV vancomycin day3 Pending culture and sensitivities * Patient underwent reversion surgery on 01/09/2017. * ID consult for antibiotic recommendations appreciated * Pain is adequately controlled * Continue pain management with IV morphine, oxycodone and Tylenol as per surgery * PT on board * Weight beaing recommendations per Dr. Suarez 2. History of hypertension, hyperlipidemia, coronary artery disease * aspirin resumed after surgery. * Continue statins and metoprolol. * Avoid any QTC prolonging agents * Dr. Gibbs is following the patient 3. History of diabetes mellitus * Good blood glucose control ranging from 90s to 100 * We'll continue to hold oral hypoglycemic agents. * Hemoglobin A1c 6.6 * Continue with NPH insulin and insulin sliding scale * Accu-Cheks * Continue Diabteic diet 4 VALENTINA on CKD: * Continue to monitor BEP * Continue gentle hydration as needed * avoid any nephrotoxic agents. * Creatinine improved 1.1 from 1.7 5. Peripheral artery disease Given his nonpalpable pedal pulses, an arterial duplex was ordered. Abnormal monophasic waveforms in the left below-knee arteries suggesting at least moderate underlying peripheral arterial disease. Greater sensitivity and specificity can be obtained with pre-and post exercise PVRs with GARRY calculations. * underwent angiogram 01/09/2017 -Patent aorta with no significant disease. -Patent bilateral common iliac, external iliac, and internal iliac arteries with no significant disease. Left common and external iliac arteries are tortuous. -Patent left common femoral and profunda femoris with no significant disease. SFAs patent without significant disease. -Patent popliteal artery, anterior tibial, tibial peroneal trunk Selin peroneal and posterior tibial artery. There is three-vessel runoff to the foot. There is mild disease in the midsegment of the posterior tibial artery. DVT prophylaxis subcutaneous heparin Code status DNI,DNR Problem List: 1. Osteomyelitis Pain Ratin Pain Location: left foot Pain Goal: Remain pain free Pain Plan: tylinol Tomorrow's Labs & Rationales: none
[2017-01-10 07:17] VITALS: BP 116/50
[2017-01-10 08:01] LABS: ABSOLUTE BASOPHIL COUNT 0 /CUMM (0.0-0.2); ABSOLUTE EOSINOPHIL COUNT 0.4 /CUMM (0.0-0.7); ABSOLUTE GRANULOCYTE CT 5.5 /CUMM (1.4-6.5); ABSOLUTE LYMPH COUNT 1.5 /CUMM (1.2-3.4); ABSOLUTE MONOCYTE COUNT 0.6 /CUMM (0.10-0.60); BASOPHIL % 0.3 % (0.0-2.0); EOSINOPHIL % 5.1 % (0-5); GRANULOCYTE % 68.1 % (42.2-75.2); HEMATOCRIT 30.4 % (42-52); MEAN CORPUSCULAR HGB 29.3 PG (27.0-31.0); MEAN CORPUSCULAR HGB CONC 34.2 G/DL (33.0-37.0); MEAN CORPUSCULAR VOLUME 85.6 FL (80.0-94.0); MEAN PLATELET VOLUME 7.8 FL (7.4-10.4); PLATELET COUNT 264 /CUMM (130-400); RBC DISTRIBUTION WIDTH 13.7 % (11.5-14.5); RED BLOOD CELL CT 3.55 /CUMM (4.70-6.10); WHITE BLOOD CELL COUNT 8.1 /CUMM (4.8-10.8)
--- NOTE | 2017-01-10 12:59 | PN- Infect Dx ---
Subjective Subjective: No fever; good appetite. POD #1 s/p L LE angiogram Review of Systems Comments: 12 points reviewed as noted, otherwise negative. Objective Last 24 Hrs of Vital Signs/I&O Vital Signs Date Time Temp Pulse Resp B/P B/P Pulse O2 O2 Flow FiO2 Mean Ox Delivery Rate 01/10 0946 120/56 01/10 0946 120/56 01/10 0717 98.1 68 20 116/50 94 Room Air 01/09 2256 98.7 89 20 168/70 98 Room Air 01/09 2123 168/70 01/09 2123 168/70 01/09 1827 73 18 158/70 99 Room Air Intake & Output 01/10 1600 01/10 0800 01/10 0000 Intake Total 300 590 Output Total 350 200 Balance -50 390 Intake, IV 100 350 Intake, Oral 200 240 Number 1 Bowel Movements Output, Urine 350 200 Patient 285 lb Weight Physical Exam Other Physical Findings: General Appearance: well developed/nourished, no apparent distress, alert, awake , comfortable Head: atraumatic, normal appearance Ears, Nose, Throat: normal pharynx Respiratory: normal breath sounds, chest non-tender, no respiratory distress Cardiovascular: regular rate/rhythm, S1 S2 present Gastrointestinal: normal bowel sounds, soft, non-tender Back: normal inspection Extremities: no edema; L foot dressing on Neurologic: no motor deficits, awake, alert, oriented x 3 Skin: warm/dry Results Last 24 Hours of Lab Results: Laboratory Tests 01/10 0710 Chemistry Sodium (137 - 145 mmol/L) 137 Potassium (3.5 - 5.1 mmol/L) 4.1 Chloride (98 - 107 mmol/L) 102 Carbon Dioxide (22 - 30 mmol/L) 29 Anion Gap (5 - 16) 6 BUN (9 - 20 mg/dL) 14 Creatinine (0.7 - 1.2 mg/dL) 1.1 Estimated GFR (>60 ml/min) > 60 BUN/Creatinine Ratio (7 - 25 %) 12.7 Hematology CBC w Diff NO MAN DIFF REQ WBC (4.8 - 10.8 /CUMM) 8.1 RBC (4.70 - 6.10 /CUMM) 3.55 L Hgb (14.0 - 18.0 G/DL) 10.4 L Hct (42 - 52 %) 30.4 L MCV (80.0 - 94.0 FL) 85.6 MCH (27.0 - 31.0 PG) 29.3 RDW (11.5 - 14.5 %) 13.7 Plt Count (130 - 400 /CUMM) 264 MPV (7.4 - 10.4 FL) 7.8 Gran % (42.2 - 75.2 %) 68.1 Lymphocytes % (20.5 - 51.1 %) 18.8 L Monocytes % (1.7 - 9.3 %) 7.7 Eosinophils % (0 - 5 %) 5.1 H Basophils % (0.0 - 2.0 %) 0.3 Absolute Granulocytes (1.4 - 6.5 /CUMM) 5.5 Absolute Lymphocytes (1.2 - 3.4 /CUMM) 1.5 Absolute Monocytes (0.10 - 0.60 /CUMM) 0.6 Absolute Eosinophils (0.0 - 0.7 /CUMM) 0.4 Absolute Basophils (0.0 - 0.2 /CUMM) 0 PUBS MCHC (33.0 - 37.0 G/DL) 34.2 Last 24 Hours of Yo Results: PEC #: [id number] MONSERRAT: 01/06/17 STATUS: COMP RECD: 01/06/[address]: GINO AGUIAR DPM SOURCE: [facility] ENTR: 01/06/[address] [facility] [address]: BRITTNEY [place],GAURI Mccartney SPDESC: FOOT LEFT ORDERED: XTRMOR COMMENT: ADDITIONAL INFORMATION: BONE Procedure Result > GRAM STAIN Final 01/07/17-2035 WHITE BLOOD CELLS NONE GRAM POSITIVE COCCI MANY IN CHAINS OTHER AFTER OVERNIGHT INCUBATION IN THIO BROTH > EXTREMITIES OR SPECIMEN Final 01/09/17-1308 AFTER OVERNIGHT INCUBATION IN THIO BROTH: 1. BETA STREP GROUP C Penicillin and Ampicillin are drugs of choice for beta-hemolytic streptococcal infections. Susceptibility testing of penicillins and other beta-lactams are not routinely performed because non-susceptible isolates have only rarely been reported. Note: If patient is allergic to Penicillin, the laboratory can perform Clindamycin testing upon request. Please call within 5 days of final report. 2. DIPHTHEROIDS Recent Imaging Studies: XAMINATION: INTRAOPERATIVE FLUOROSCOPY DURING LEFT LOWER EXTREMITY ANGIOGRAM CLINICAL INDICATION: Nonhealing left foot ulcer. COMPARISON: None. TECHNIQUE: The procedure was performed by Dr. Watson in the operating room. FLUOROSCOPY TIME: 5 minutes 22 seconds. FINDINGS/IMPRESSION:: Intraoperative fluoroscopy was utilized by Dr. Watson during abdominal aortogram and left lower extremity angiogram. Please refer to the operative report for a detailed description of the procedure and the real-time findings made and acted upon by the surgeon. DICTATED BY: JOSEY WEI DO DATE/TIME DICTATED:01/09/171630 RICE FARMWORKER:SRINIVAS DATE/TIME TRANSCRIBED:01/09/171630 Assessment/Plan Impression: 76-year-old gentleman with past medical history of hypertension, hyperlipidemia, diabetes, coronary artery disease status post stent placement 6 years ago admitted 01/05/2017. Polymicrobial infection diabetic non healing L foot ulcer; h/o MRSA colonization OP L foot X ray suggestive of osteomyelitis to the second metatarsal head Post op day 4- s/p open incision and drainage of multiple sites on left foot, second ray resection left foot and excisional debridement Leukocytosis/resolved Elevated ESR (81 on 01/05) VALENTINA/CKD Suggestion: 1. OR culture result noted (+ Strep gr. C and diphteroids) 2. Trend CBC/BMP. Of note kidney function continues to improve; if wnl can increase Unasyn dosing to q 6 h. 3. Continue D #4 iv Unasyn 3 gm q 8 h (as kidney function improved); lengh of therapy 4-6 weeks (PICC early next week). 4. D/C iv vancomycin.
--- NOTE | 2017-01-10 13:10 | PN- Podiatry ---
Subjective Subjective: Patient seen at bedside with no new complaints. Patient denies nausea vomiting fever chills. Patient denies left foot pain. Objective Vital Signs and I&Os Vital Signs Date Time Temp Pulse Resp B/P B/P Pulse O2 O2 Flow FiO2 Mean Ox Delivery Rate 01/10 0946 120/56 01/10 0946 120/56 01/10 0717 98.1 68 20 116/50 94 Room Air 01/09 2256 98.7 89 20 168/70 98 Room Air 01/09 2123 168/70 01/09 2123 168/70 01/09 1827 73 18 158/70 99 Room Air Intake & Output 01/10 1600 01/10 0800 01/10 0000 01/09 1600 01/09 0800 01/09 0000 Intake Total 300 590 750 600 200 Output Total 350 200 350 Balance -50 390 400 600 200 Intake, IV 100 350 750 600 Intake, Oral 200 240 0 200 Number 1 Bowel Movements Output, Urine 350 200 350 Patient 285 lb Weight Physical Exam: Dressing left foot clean dry and intact. No strikethrough identified. No pain with deep palpation bilateral lower extremities. Assessment/Plan Assessment/Plan Left foot osteomyelitis. Continue IV antibiotics per ID recommendations. Patient will have PICC line placed Thursday. Awaiting final recommendations regarding outpatient antibiotics. For now, strict nonweightbearing left lower extremity. Core Measures/Miscellaneous Venous Thromboembolism VTE Risk Factors: Age > 40, Immobility, paresis, Surgery VTE Contraindications: No Contraindications VTE Diagnosis: No Beta Jackie Is Beta Jackie a Home Med? Yes Antibiotics Is Patient on Antibiotics? Yes If Yes: infection Attending MD Review Statement Attending Statement Attending MD Statement: examined this patient
[2017-01-10 14:58] VITALS: BP 138/70
[2017-01-10 22:41] VITALS: BP 132/68
[2017-01-11 06:00] VITALS: BP 128/80
[2017-01-11 08:28] LABS: ABSOLUTE BASOPHIL COUNT 0 /CUMM (0.0-0.2); ABSOLUTE EOSINOPHIL COUNT 0.5 /CUMM (0.0-0.7); ABSOLUTE GRANULOCYTE CT 5.1 /CUMM (1.4-6.5); ABSOLUTE LYMPH COUNT 1.5 /CUMM (1.2-3.4); ABSOLUTE MONOCYTE COUNT 0.5 /CUMM (0.10-0.60); BASOPHIL % 0.3 % (0.0-2.0); EOSINOPHIL % 6.3 % (0-5); GRANULOCYTE % 66.8 % (42.2-75.2); HEMATOCRIT 32.2 % (42-52); MEAN CORPUSCULAR HGB 29.3 PG (27.0-31.0); MEAN CORPUSCULAR VOLUME 85.9 FL (80.0-94.0); MEAN PLATELET VOLUME 7.9 FL (7.4-10.4); PLATELET COUNT 297 /CUMM (130-400); RBC DISTRIBUTION WIDTH 13.8 % (11.5-14.5); RED BLOOD CELL CT 3.74 /CUMM (4.70-6.10); WHITE BLOOD CELL COUNT 7.7 /CUMM (4.8-10.8)
--- NOTE | 2017-01-11 09:58 | PN- Housestaff ---
SANDRA COLORADO,RAYO 01/11/17 0957: Subjective Follow-up For: Nonhealing ulcer on the plantar aspect of the left foot with cellulitis and possible underlying osteomyelitis Status post open incision and drainage Status post revision surgery pad s/p angiogram Complaints: pain scale (0-10) Tele-Events Since Last Visit: GM HOLD Subjective: I have personally seen the patient At bedside he was lying down comfortably in no acute distress Review of Systems Constitutional: Denies: see HPI. EENTM: Denies: no symptoms. Cardiovascular: Denies: no symptoms. Respiratory: Denies: no symptoms. Gastrointestinal: Denies: no symptoms. Objective Last 24 Hrs of Vital Signs/I&O Vital Signs Date Time Temp Pulse Resp B/P B/P Pulse O2 O2 Flow FiO2 Mean Ox Delivery Rate 01/11 0945 70 128/80 01/11 0945 70 128/80 01/11 0600 97.8 70 18 128/80 95 Room Air 01/10 2241 98.7 70 20 132/68 97 Room Air 01/10 2157 Room Air 01/10 2134 80 138/70 01/10 2133 80 138/70 01/10 1458 98.1 80 20 138/70 97 Room Air Intake & Output 01/11 1600 01/11 0800 01/11 0000 Intake Total 200 50 Output Total 700 Balance -500 50 Intake, IV 200 50 Output, Urine 700 Physical Exam General Appearance: Alert, Oriented X3, Cooperative, No Acute Distress Skin: No Rashes, No Breakdown, No Significant Lesion Skin Temp/Moisture Exam: Warm/Dry HEENT: Atraumatic, PERRLA, EOMI, Mucous Membr. moist/pink Neck: Supple, No JVD Cardiovascular: Regular Rate, Normal S1, Normal S2, No Murmurs Lungs: Clear to Auscultation, Normal Air Movement Abdomen: Normal Bowel Sounds, Soft, No Tenderness Neurological: Normal Speech, Strength at 5/5 X4 Ext, Normal Tone Extremities: No Clubbing, No Cyanosis, No Edema Vascular: Normal Pulses, Pulses Symmetrical Assessment/Plan Assessment: Patient is a 76-year-old gentleman with past medical history significant for hypertension, hyperlipidemia, diabetes, coronary artery disease status post stent placement 6 years ago, chronic kidney disease stage III, peripheral neuropathy, prostate cancer status post prostatectomy, gout, left great toe amputation, MRSA infection has been admitted to [facility] under Dr. Giles's service for possible surgical intervention of the nonhealing ulcer with concerns of underlying osteomyelitis on 01/05/2017. Vitals on admission were stable. Pertinent labs on admission leukocytosis 12.8. H&H is stable. ESR is elevated at 81. BUN 34 and creatinine 1.7. foot xray The new erosions of the second metatarsal head are suspicious for osteomyelitis. Note that the base of the proximal phalanx of the second toe is suboptimally evaluated due to its overlap with the metatarsal head.. 1. Nonhealing ulcer on the plantar aspect of the left foot with cellulitis and possible underlying osteomyelitis(suggested by x-ray, MRI cannot be obtained due to spine stimulator) He was advised by his psychologist educational Dr. Rousseau to come into the [facility] on 01/05/2017 due to a non healing ulcer. Approximately 6 weeks ago the patient developed an ulcer located on the plantar aspect of the left foot. He subsequently followed up with Dr Butler and Dr. Rousseau for a period of 6 weeks. The patient has undergone an extended course of conservative care, including local intensive wound care consisting of periodic weekly debridements and offloading with a total contact cast. Unfortunately, the patient's ulceration failed to improve and he developed a probing lesion with x-ray L foot findings suggestive of osteomyelitis to the second metatarsal head. He received oral abx (Augmentin) as outpatient. * Left foot cellulitis with osteomyelitis in the setting of a nonhealing neuropathic ulcer. Patient admitted for an initial debridement and cultures. * open incision and drainage deep to the deep fascia with exposure of the extensor and flexor tendon and tendon sheath multiple sites left foot, second ray resection left foot, excisional debridement - 01/06/2017 * Patient was started on IV Unasyn 3000 g every 6 hours- DAY5 * Continue to DC vancomycin * Patient underwent reversion surgery on 01/09/2017. * OR culture result noted (+ Strep gr. C and diphteroids) 2. Trend CBC/BMP. Of note kidney function continues to improve; if wnl can increase Unasyn dosing to q 6 h; for now continue dosing q 8 h as creatinine trending up today. 3. Continue D #5iv Unasyn 3 gm q 8 h; lengh of therapy 4-6 weeks (PICC early next week); depending on clinical improvement and path results. * Pain is adequately controlled * Continue pain management with IV morphine, oxycodone and Tylenol as per surgery * PT on board * Weight beaing recommendations per Dr. Suarez 2. History of hypertension, hyperlipidemia, coronary artery disease * aspirin resumed after surgery. * Continue statins and metoprolol. * Avoid any QTC prolonging agents * Dr. Gibbs is following the patient 3. History of diabetes mellitus * Good blood glucose control ranging from 90s to 100 * We'll continue to hold oral hypoglycemic agents. * Hemoglobin A1c 6.6 * Continue with NPH insulin and insulin sliding scale * Accu-Cheks * Continue Diabteic diet 4 VALENTINA on CKD: * Continue to monitor BEP * Continue gentle hydration as needed * avoid any nephrotoxic agents. * Creatinine improved 1.1 from 1.7 5. Peripheral artery disease Given his nonpalpable pedal pulses, an arterial duplex was ordered. Abnormal monophasic waveforms in the left below-knee arteries suggesting at least moderate underlying peripheral arterial disease. Greater sensitivity and specificity can be obtained with pre-and post exercise PVRs with GARRY calculations. * underwent angiogram 01/09/2017 -Patent aorta with no significant disease. -Patent bilateral common iliac, external iliac, and internal iliac arteries with no significant disease. Left common and external iliac arteries are tortuous. -Patent left common femoral and profunda femoris with no significant disease. SFAs patent without significant disease. -Patent popliteal artery, anterior tibial, tibial peroneal trunk Selin peroneal and posterior tibial artery. There is three-vessel runoff to the foot. There is mild disease in the midsegment of the posterior tibial artery. DVT prophylaxis subcutaneous heparin Code status DNI,DNR Problem List: 1. Osteomyelitis 2. Foot ulcer 3. VALENTINA (acute kidney injury) Pain Ratin Pain Location: Left foot Pain Goal: Remain pain free Pain Plan: Tylenol Tomorrow's Labs & Rationales: CBC BEP DVT/Prophylaxis: pharmacological GENESIS COLORADO,AMIR 01/11/17 1031: Attending MD Review Statement Attending Statement Attending MD Statement: examined this patient, discuss w/resident/PA/BRATTICE BUILDER, agreed w/resident/PA/BRATTICE BUILDER, reviewed EMR data (avail), discussed with nursing Attending Assessment/Plan: Mr. Dowling was seen by me. Chart reviewed. No interval nursing issues VSS, remains afebrile GEN: NAD LUNGS: CTAB HEART: s1s2 EXT: wound dressing Labs/Diagnostics: WBC - stable, Cx data reviewed A/P: ID: Osteo -- On IV Unasyn, remains afebrile -- Appreciate ID eval -- will need IV abx dose adjusted as per renal fx -- will need PICC line upon d/c Podiatry -- appreciate input -- f/u pod recs -- PICC placement likely on Thu Renal -- Cr fluctuating -- cont to monitor - renally dose IV abx rest of the plan as per resident's note
--- NOTE | 2017-01-11 11:49 | PN- Infect Dx ---
Subjective Subjective: No fever. Fair appetite. No acute events. Review of Systems Comments: 12 points reviewed as noted, otherwise negative. Objective Last 24 Hrs of Vital Signs/I&O Vital Signs Date Time Temp Pulse Resp B/P B/P Pulse O2 O2 Flow FiO2 Mean Ox Delivery Rate 01/11 0945 70 128/80 01/11 0945 70 128/80 01/11 0600 97.8 70 18 128/80 95 Room Air 01/10 2241 98.7 70 20 132/68 97 Room Air 01/10 2157 Room Air 01/10 2134 80 138/70 01/10 2133 80 138/70 01/10 1458 98.1 80 20 138/70 97 Room Air Intake & Output 01/11 1600 01/11 0800 01/11 0000 Intake Total 200 50 Output Total 700 Balance -500 50 Intake, IV 200 50 Output, Urine 700 Physical Exam Other Physical Findings: General Appearance: well nourished, no apparent distress, comfortable Head: atraumatic, normal appearance Ears, Nose, Throat: normal pharynx Respiratory: normal breath sounds, chest non-tender, no respiratory distress Cardiovascular: regular rate/rhythm, S1 S2 present Gastrointestinal: normal bowel sounds, soft, non-tender Back: normal inspection Extremities: no edema; L foot dressing on Neurologic: no motor deficits, awake, alert, oriented x 3 Skin: warm/dry Results Last 24 Hours of Lab Results: Laboratory Tests 01/11 0630 Chemistry Sodium (137 - 145 mmol/L) 140 Potassium (3.5 - 5.1 mmol/L) 4.0 Chloride (98 - 107 mmol/L) 103 Carbon Dioxide (22 - 30 mmol/L) 28 Anion Gap (5 - 16) 9 BUN (9 - 20 mg/dL) 11 Creatinine (0.7 - 1.2 mg/dL) 1.2 Estimated GFR (>60 ml/min) 59 L BUN/Creatinine Ratio (7 - 25 %) 9.2 Hematology CBC w Diff NO MAN DIFF REQ WBC (4.8 - 10.8 /CUMM) 7.7 RBC (4.70 - 6.10 /CUMM) 3.74 L Hgb (14.0 - 18.0 G/DL) 11.0 L Hct (42 - 52 %) 32.2 L MCV (80.0 - 94.0 FL) 85.9 MCH (27.0 - 31.0 PG) 29.3 RDW (11.5 - 14.5 %) 13.8 Plt Count (130 - 400 /CUMM) 297 MPV (7.4 - 10.4 FL) 7.9 Gran % (42.2 - 75.2 %) 66.8 Lymphocytes % (20.5 - 51.1 %) 20.0 L Monocytes % (1.7 - 9.3 %) 6.6 Eosinophils % (0 - 5 %) 6.3 H Basophils % (0.0 - 2.0 %) 0.3 Absolute Granulocytes (1.4 - 6.5 /CUMM) 5.1 Absolute Lymphocytes (1.2 - 3.4 /CUMM) 1.5 Absolute Monocytes (0.10 - 0.60 /CUMM) 0.5 Absolute Eosinophils (0.0 - 0.7 /CUMM) 0.5 Absolute Basophils (0.0 - 0.2 /CUMM) 0 PUBS MCHC (33.0 - 37.0 G/DL) 34.0 Last 24 Hours of Yo Results: #: [id number] MONSERRAT: 01/06/17 STATUS: COMP RECD: 01/06/[address]: GINO AGUIAR DPM SOURCE: EXTREMITIE ENTR: 01/06/[address]: BRITTNEY [place],GAURI Mccartney SPDESC: FOOT LEFT ORDERED: XTRMOR COMMENT: ADDITIONAL INFORMATION: BONE Procedure Result > GRAM STAIN Final 01/07/17-2035 WHITE BLOOD CELLS NONE GRAM POSITIVE COCCI MANY IN CHAINS OTHER AFTER OVERNIGHT INCUBATION IN THIO BROTH > EXTREMITIES OR SPECIMEN Final 01/09/17-1308 AFTER OVERNIGHT INCUBATION IN THIO BROTH: 1. BETA STREP GROUP C Penicillin and Ampicillin are drugs of choice for beta-hemolytic streptococcal infections. Susceptibility testing of penicillins and other beta-lactams are not routinely performed because non-susceptible isolates have only rarely been reported. Note: If patient is allergic to Penicillin, the laboratory can perform Clindamycin testing upon request. Please call within 5 days of final report. 2. DIPHTHEROIDS PLEASE NOTE CHANGE FROM PRELIMINARY REPORT Called to/Readback by CASEY by KRIS 01/08/17 [id number] Recent Imaging Studies: Reviewed. Assessment/Plan Impression: 76-year-old gentleman with past medical history of hypertension, hyperlipidemia, diabetes, coronary artery disease status post stent placement 6 years ago admitted 01/05/2017. Polymicrobial infection diabetic non healing L foot ulcer; h/o MRSA colonization OP L foot X ray suggestive of osteomyelitis to the second metatarsal head Post op day 5- s/p open incision and drainage of multiple sites on left foot, second ray resection left foot and excisional debridement Leukocytosis/resolved Elevated ESR (81 on 01/05) VALENTINA/CKD Suggestion: 1. OR culture result noted (+ Strep gr. C and diphteroids) 2. Trend CBC/BMP. Of note kidney function continues to improve; if wnl can increase Unasyn dosing to q 6 h; for now continue dosing q 8 h as creatinine trending up today. 3. Continue D #4 iv Unasyn 3 gm q 8 h; lengh of therapy 4-6 weeks (PICC early next week); depending on clinical improvement and path results.
[2017-01-11 14:33] VITALS: BP 140/60; BP 140/80
[2017-01-11 22:43] VITALS: BP 160/82
[2017-01-12 06:47] VITALS: BP 140/80
--- NOTE | 2017-01-12 08:25 | PN- Housestaff ---
LION FARNSWORTH 01/12/17 0825: Subjective Follow-up For: Nonhealing ulcer on the plantar aspect of the left foot with cellulitis and possible underlying osteomyelitis Status post open incision and drainage Status post revision surgery pad s/p angiogram Complaints: pain scale (0-10) Tele-Events Since Last Visit: not on tele Subjective: patient was seen and examined this morning. He is alert awake and oriented to time place and person. No acute events noticed overnight. Status post revision surgery Status post angiogram He does report very mild pain left foot. Denied any fever or chills. Denies any other complaints. Vitals stable. Remained afebrile Review of Systems Constitutional: Reports: see HPI. Objective Last 24 Hrs of Vital Signs/I&O Vital Signs Date Time Temp Pulse Resp B/P B/P Pulse O2 O2 Flow FiO2 Mean Ox Delivery Rate 01/12 1159 97.9 65 20 140/80 01/12 1158 97.9 65 20 140/80 01/12 0647 97.9 65 20 140/80 94 Room Air 01/11 2243 97.9 86 20 160/82 97 Room Air 01/11 2051 74 138/76 01/11 2051 74 136/74 Intake & Output 01/12 1600 01/12 0800 01/12 0000 Intake Total 800 300 600 Output Total 250 400 600 Balance 550 -100 0 Intake, IV 100 100 Intake, Oral 800 200 500 Output, Urine 250 400 600 Physical Exam General Appearance: Alert, Oriented X3, Cooperative, No Acute Distress Skin: No Rashes, left foot dressing intact HEENT: Atraumatic, PERRLA, EOMI, Mucous Membr. moist/pink Neck: Supple, No JVD Lymphatic: Cervical nl Cardiovascular: Normal S1, Normal S2 Lungs: Normal Air Movement Abdomen: Normal Bowel Sounds, Soft, No Tenderness Extremities: No Clubbing, No Cyanosis, No Edema Vascular: Pulses Symmetrical Current Medications: Current Medications Sig/Chan Start time Last Medication Dose Route Stop Time Status Admin Acetaminophen 650 MG Q6P PRN 01/06 0230 AC PO Ampicillin Sodium/ 3,000 MG Q6 01/12 1800 AC Sulbactam Sodium IV Sodium Chloride 100 ML Ampicillin Sodium/ 3,000 MG Q8 01/12 0600 DC 01/12 Sulbactam Sodium IV 0541 Sodium Chloride 100 ML Ampicillin Sodium/ 3,000 MG Q8 01/070 DC 01/11 Sulbactam Sodium IV 2051 Sodium Chloride 100 ML Aspirin 325 MG DAILY 01/10 1000 AC 01/12 PO 1159 Gabapentin 200 MG BID 01/05 2200 AC 01/12 PO 1159 Heparin Sodium 5,000 UNIT Q8 01/06 0600 AC 01/12 (Porcine) SC 0541 Insulin Aspart 0 TIDAC 01/07 1200 AC 01/10 SC 1256 Lisinopril 20 MG BID 01/09 2200 AC 01/12 PO 1159 Metoprolol Tartrate 25 MG BID 01/05 220 AC 01/12 PO 1158 Morphine Sulfate 30 MG TID PRN 01/06 1445 AC 01/11 PO 1729 Morphine Sulfate 2 MG Q4P PRN 01/06 0230 AC 01/11 IV 205 Multivitamins 1 TAB DAILY 01/06 1000 AC 01/12 PO 1159 Nortriptyline HCl 25 MG AT BEDTIME 01/05 2200 AC 01/11 PO 2050 Oxycodone/ 1 TAB Q6P PRN 01/05 191 AC 01/10 Acetaminophen PO 225 Polyethylene Glycol 17 GM DAILY 01/10 0945 AC 01/12 PO 1200 Simvastatin 40 MG AT BEDTIME 01/05 2200 AC 01/11 PO 205 Last 24 Hrs of Lab/Yo Results Last 24 Hrs of Labs/Mics: Laboratory Tests 01/12/17 1530: ESR Westergren Pending 01/12/17 1122: PT 13.0 H, INR 1.24 H 01/12/17 0736: Anion Gap 11, Estimated GFR 59 L, BUN/Creatinine Ratio 10.0, CBC w Diff NO MAN DIFF REQ, RBC 3.79 L, MCV 86.3, MCH 28.9, RDW 14.2, MPV 7.7, Gran % 61.5, Lymphocytes % 27.4, Monocytes % 5.0, Eosinophils % 5.7 H, Basophils % 0.4, Absolute Granulocytes 6.0, Absolute Lymphocytes 2.7, Absolute Monocytes 0.5, Absolute Eosinophils 0.6, Absolute Basophils 0, PUBS MCHC 33.5 Assessment/Plan Assessment: Patient is a 76-year-old gentleman with past medical history significant for hypertension, hyperlipidemia, diabetes, coronary artery disease status post stent placement 6 years ago, chronic kidney disease stage III, peripheral neuropathy, prostate cancer status post prostatectomy, gout, left great toe amputation, MRSA infection has been admitted to [facility] under Dr. Giles's service for possible surgical intervention of the nonhealing ulcer with concerns of underlying osteomyelitis on 01/05/2017. Vitals on admission were stable. Pertinent labs on admission leukocytosis 12.8. H&H is stable. ESR is elevated at 81. BUN 34 and creatinine 1.7. foot xray The new erosions of the second metatarsal head are suspicious for osteomyelitis. Note that the base of the proximal phalanx of the second toe is suboptimally evaluated due to its overlap with the metatarsal head.. 1. Nonhealing ulcer on the plantar aspect of the left foot with cellulitis and possible underlying osteomyelitis(suggested by x-ray, MRI cannot be obtained due to spine stimulator) He was advised by his cork molder Dr. Rousseau to come into the [facility] on 01/05/2017 due to a non healing ulcer. Approximately 6 weeks ago the patient developed an ulcer located on the plantar aspect of the left foot. He subsequently followed up with Dr Butler and Dr. Rousseau for a period of 6 weeks. The patient has undergone an extended course of conservative care, including local intensive wound care consisting of periodic weekly debridements and offloading with a total contact cast. Unfortunately, the patient's ulceration failed to improve and he developed a probing lesion with x-ray L foot findings suggestive of osteomyelitis to the second metatarsal head. He received oral abx (Augmentin) as outpatient. * Left foot cellulitis with osteomyelitis in the setting of a nonhealing neuropathic ulcer. Patient admitted for an initial debridement and cultures. * open incision and drainage deep to the deep fascia with exposure of the extensor and flexor tendon and tendon sheath multiple sites left foot, second ray resection left foot, excisional debridement - 01/06/2017 * Patient underwent reversion surgery on 01/09/2017. * Patient was started on IV Unasyn 3000 g every 6 hours- needs 4 weeks of IV antibiotics until February 06 * specimen growing Group G strep and diphtheroids and the pathology positive for osteomyelitis. . * ID consult for antibiotic recommendations appreciated * Pain is adequately controlled * Continue pain management with IV morphine, oxycodone and Tylenol as per surgery * heel tousch Weight beaing recommendations per Dr. Suarez * dressing intact as per Dr. Giles 2. History of hypertension, hyperlipidemia, coronary artery disease * resumed aspirin after surgery. * Continue statins and metoprolol. * Avoid any QTC prolonging agents * Dr. Gibbs is following the patient 3. History of diabetes mellitus * Good blood glucose control ranging from 90s to 100 * We'll continue to hold oral hypoglycemic agents. * Hemoglobin A1c 6.6 * Continue with NPH insulin and insulin sliding scale * Accu-Cheks * Continue Diabteic diet 4 VALENTINA on CKD: * Continue to monitor BEP * Continue gentle hydration as needed * avoid any nephrotoxic agents. * Creatinine improved 1.1 from 1.7 5. Peripheral artery disease Given his nonpalpable pedal pulses, an arterial duplex was ordered. Abnormal monophasic waveforms in the left below-knee arteries suggesting at least moderate underlying peripheral arterial disease. Greater sensitivity and specificity can be obtained with pre-and post exercise PVRs with GARRY calculations. * s/p angiogram 01/09/2017 -Patent aorta with no significant disease. -Patent bilateral common iliac, external iliac, and internal iliac arteries with no significant disease. Left common and external iliac arteries are tortuous. -Patent left common femoral and profunda femoris with no significant disease. SFAs patent without significant disease. -Patent popliteal artery, anterior tibial, tibial peroneal trunk Selin peroneal and posterior tibial artery. There is three-vessel runoff to the foot. There is mild disease in the midsegment of the posterior tibial artery. DVT prophylaxis subcutaneous heparin Code status DNI,DNR Problem List: 1. Osteomyelitis Pain Ratin Pain Location: left foot Pain Goal: Remain pain free Pain Plan: tylinol Tomorrow's Labs & Rationales: none QUYNH ESPARZA 01/12/17 1136: Attending MD Review Statement Attending Statement Attending MD Statement: examined this patient, discuss w/resident/PA/IRB COMPLIANCE COORDINATOR, agreed w/resident/PA/IRB COMPLIANCE COORDINATOR, discussed with family, reviewed EMR data (avail), discussed with nursing, discussed with case mgmt, reviewed images, amended to note Attending Assessment/Plan: Patient is admitted for left foot nonhealing plantar ulcer with cellulitis and osteomyelitis. Patient cannot get an MRI as his stimulator is not MRI compatible. Patient s/p debridement and bone cultures. Cardiology risk stratification obtained. ID consulted follow culuteres abx as per ID. PICC line, Pain management. Diabetes management hold glimepiride, c/w insulin SS. resume home meds at discharge. Podaitry s/p debridement and revision surgery of leeft foot non healing ulcer. Angiogram for PVD as per vascular surgery with minimal disease no surgical intervetnion and c/w medical management. c/w asa/statin. c/w colchicine, gabapentin, metoprolol, nortriptyline and simvastatin. DVT prophylaxis. DNI. Consulted case management. patient is gen/med hold and can be discharged in next 24 hrs.
[2017-01-12 08:34] LABS: ABSOLUTE BASOPHIL COUNT 0 /CUMM (0.0-0.2); ABSOLUTE EOSINOPHIL COUNT 0.6 /CUMM (0.0-0.7); ABSOLUTE LYMPH COUNT 2.7 /CUMM (1.2-3.4); ABSOLUTE MONOCYTE COUNT 0.5 /CUMM (0.10-0.60); BASOPHIL % 0.4 % (0.0-2.0); EOSINOPHIL % 5.7 % (0-5); GRANULOCYTE % 61.5 % (42.2-75.2); HEMATOCRIT 32.7 % (42-52); MEAN CORPUSCULAR HGB 28.9 PG (27.0-31.0); MEAN CORPUSCULAR HGB CONC 33.5 G/DL (33.0-37.0); MEAN CORPUSCULAR VOLUME 86.3 FL (80.0-94.0); MEAN PLATELET VOLUME 7.7 FL (7.4-10.4); PLATELET COUNT 341 /CUMM (130-400); RBC DISTRIBUTION WIDTH 14.2 % (11.5-14.5); RED BLOOD CELL CT 3.79 /CUMM (4.70-6.10); WHITE BLOOD CELL COUNT 9.8 /CUMM (4.8-10.8)
--- NOTE | 2017-01-12 11:30 | PN- Infect Dx ---
Subjective Subjective: Afebrile without complaints. He has no pain in the left foot. Objective Last 24 Hrs of Vital Signs/I&O Vital Signs Date Time Temp Pulse Resp B/P B/P Pulse O2 O2 Flow FiO2 Mean Ox Delivery Rate 01/12 0647 97.9 65 20 140/80 94 Room Air 01/11 2243 97.9 86 20 160/82 97 Room Air 01/11 2051 74 138/76 01/11 2051 74 136/74 01/11 1433 98.9 78 20 140/80 95 Intake & Output 01/12 1600 01/12 0800 01/12 0000 Intake Total 300 600 Output Total 400 600 Balance -100 0 Intake, IV 100 100 Intake, Oral 200 500 Output, Urine 400 600 Physical Exam Other Physical Findings: He appears comfortable in no acute distress Extremities left foot dressing intact Results Last 24 Hours of Lab Results: Laboratory Tests 01/12 0736 Chemistry Sodium (137 - 145 mmol/L) 139 Potassium (3.5 - 5.1 mmol/L) 4.1 Chloride (98 - 107 mmol/L) 105 Carbon Dioxide (22 - 30 mmol/L) 24 Anion Gap (5 - 16) 11 BUN (9 - 20 mg/dL) 12 Creatinine (0.7 - 1.2 mg/dL) 1.2 Estimated GFR (>60 ml/min) 59 L BUN/Creatinine Ratio (7 - 25 %) 10.0 Hematology CBC w Diff NO MAN DIFF REQ WBC (4.8 - 10.8 /CUMM) 9.8 RBC (4.70 - 6.10 /CUMM) 3.79 L Hgb (14.0 - 18.0 G/DL) 11.0 L Hct (42 - 52 %) 32.7 L MCV (80.0 - 94.0 FL) 86.3 MCH (27.0 - 31.0 PG) 28.9 RDW (11.5 - 14.5 %) 14.2 Plt Count (130 - 400 /CUMM) 341 MPV (7.4 - 10.4 FL) 7.7 Gran % (42.2 - 75.2 %) 61.5 Lymphocytes % (20.5 - 51.1 %) 27.4 Monocytes % (1.7 - 9.3 %) 5.0 Eosinophils % (0 - 5 %) 5.7 H Basophils % (0.0 - 2.0 %) 0.4 Absolute Granulocytes (1.4 - 6.5 /CUMM) 6.0 Absolute Lymphocytes (1.2 - 3.4 /CUMM) 2.7 Absolute Monocytes (0.10 - 0.60 /CUMM) 0.5 Absolute Eosinophils (0.0 - 0.7 /CUMM) 0.6 Absolute Basophils (0.0 - 0.2 /CUMM) 0 PUBS MCHC (33.0 - 37.0 G/DL) 33.5 Last 24 Hours of Yo Results: OR culture January 06 labeled left foot bone positive for beta strep Group C and diphtheroids Assessment/Plan Impression: 76-year-old gentleman with past medical history of hypertension, hyperlipidemia, diabetes, coronary artery disease status post stent placement 6 years ago admitted 01/05/2017 for a nonhealing left foot ulcer with x-ray suspicious for osteomyelitis now 3 days status post revisional partial second ray resection of the left foot with the OR culture of the bone positive for Group G strep and diphtheroids and the pathology positive for osteomyelitis. The diphtheroids presumably represents a contaminant and does not require treatment. Have discussed with Podiatry who feels that he does require antibiotics for a residual osteomyelitis. Suggestion: 1. Would pursue placement of a PICC 2. Would obtain a postop baseline ESR and x-ray of the left foot 3. Increase Unasyn to 3 g IV q 6 h to plan on a four-week course of treatment ( until February 06) 4. Will need a weekly ESR while on Unasyn
[2017-01-12] MEDS ORDERED: UNASYN 3 GM VIAL3 GM IV ×2 (11:50→13:47)
--- NOTE | 2017-01-12 13:53 | Patient Discharge Instructions ---
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 Will need a weekly ESR while on Unasyn Diet Continue normal diet: Yes Activity Activity Self Limited: Yes Acute Coronary Syndrome Inclusion Criteria At DC or during hospital stay patient has or had the following: ACS DIAGNOSIS No Discharge Core Measures Meds if any: Prescribed or Continued at Discharge Meds if any: NOT Prescribed or Continued at Discharge Congestive Heart Failure Inclusion Criteria At DC or during hospital stay patient has or had the following: CHF DIAGNOSIS No Discharge Core Measures Meds if any: Prescribed or Continued at Discharge Meds if any: NOT Prescribed or Continued at Discharge Cerebrovascular accident Inclusion Criteria At DC or during hospital stay patient has or had the following: CVA/TIA Diagnosis No Discharge Core Measures Meds if any: Prescribed or Continued at Discharge Meds if any: NOT Prescribed or Continued at Discharge Venous thromboembolism Inclusion Criteria VTE Diagnosis No VTE Type NONE VTE Confirmed by (Test) NONE Discharge Core Measures - Per Current guidelines, there needs to be overlap - treatment for the first 5 days of Warfarin therapy. - If discharged on Warfarin prior to 5 days of - overlap therapy, the patient will need to be - assessed for post discharge needs including - *Post discharge parental anticoagulation - *Warfarin and/or parental anticoagulation education - *Follow up date to check INR post discharge At least 5 days overlap therapy as Inpatient No Meds if any: Prescribed or Continued at Discharge Note: Overlap Therapy is Warfarin and Anticoagulant Meds if any: NOT Prescribed or Continued at Discharge
--- NOTE | 2017-01-12 14:55 | RADIOLOGY REPORT ---
EXAMINATION:\H\ \N\XR CHEST CLINICAL INFORMATION: PICC placement. COMPARISON: Chest radiograph 03/12/2015. TECHNIQUE: Frontal view of the chest was obtained. FINDINGS: A right upper extremity PICC has been placed and its distal tip is located in the expected location of the superior vena cava. The electrode array of a spinal stimulator projects over the midthoracic region. Lungs are clear and well expanded. No focal consolidative disease, pleural effusion, or pneumothorax. The cardiac silhouette and upper mediastinal contours are normal. No acute osseous finding. IMPRESSION: The distal tip of a right upper extremity PICC is in the expected location of the superior vena cava.
--- NOTE | 2017-01-12 15:06 | RADIOLOGY REPORT ---
EXAMINATION: XR FOOT, LEFT CLINICAL INFORMATION: Postoperative osteomyelitis left foot COMPARISON: Left foot 01/01/2017, 1:10 PM TECHNIQUE: AP, lateral, and oblique views of the left foot. FINDINGS: Since the last radiograph of 01/01/2017 patient has undergone amputation of the second toe at the mid distal diaphyseal shaft of the second metatarsal. Patient's had a previous amputation which is old of the first MTP joint at the same level. The soft tissues distal to the amputation appears edematous but no radiopaque foreign body or air within the soft tissue. There is degenerative joint disease with subluxation of the third toe MTP joint. Bony ankylosis of the PIP joint of this toe. There is an old healed fracture of the metatarsal head of the fifth toe. Diffuse joint space narrowing and spurring, degenerative changes, of the midtarsal bones. IMPRESSION: Status post amputation of the second toe at the mid metatarsal.
[2017-01-12 16:10] VITALS: BP 130/54
--- NOTE | 2017-01-12 16:11 | Discharge Summary ---
See Addendum Visit Information Visit Dates Admission Date: 01/05/17 Discharge Date: 01/12/2017 Hospital Course Course Attending Physician: GINO AGUIAR DPM Primary Care Physician: GAURI LUGO MD Other Care Providers: dr. kristyn strong podiatry dr. christensen- vascular surgeon Dr. smalls- infection disease specialist Consulting Request: 1 Consulting Specialty: Infectious Disease Consulting Request: 2 Consulting Specialty: Podiatry Consulting Request: 3 Consulting Specialty: Thoracic/Vascular Surgery Hospital Course: Patient is a 76-year-old gentleman with past medical history significant for hypertension, hyperlipidemia, diabetes, coronary artery disease status post stent placement 6 years ago, chronic kidney disease stage III, peripheral neuropathy, prostate cancer status post prostatectomy, gout, left great toe amputation, MRSA infection has been admitted to [facility] under Dr. Giles's service for possible surgical intervention of the nonhealing ulcer with concerns of underlying osteomyelitis on 01/05/2017. Vitals on admission were stable. Pertinent labs on admission leukocytosis 12.8. H&H is stable. ESR is elevated at 81. BUN 34 and creatinine 1.7. foot xray The new erosions of the second metatarsal head are suspicious for osteomyelitis. Note that the base of the proximal phalanx of the second toe is suboptimally evaluated due to its overlap with the metatarsal head.. 1. Nonhealing ulcer on the plantar aspect of the left foot with cellulitis and underlying osteomyelitis(suggested by x-ray, MRI cannot be obtained due to spine stimulator) He was advised by his stretching press operator Dr. Aguiar to come into the [facility] on 01/05/2017 due to a non healing ulcer. Approximately 6 weeks ago the patient developed an ulcer located on the plantar aspect of the left foot. He subsequently followed up with Dr Butler and Dr. Aguiar for a period of 6 weeks. The patient has undergone an extended course of conservative care, including local intensive wound care consisting of periodic weekly debridements and offloading with a total contact cast. Unfortunately, the patient's ulceration failed to improve and he developed a probing lesion with x-ray Left foot findings suggestive of osteomyelitis to the second metatarsal head. He received oral abx (Augmentin) as outpatient. He was admitted to [facility] for Left foot cellulitis with osteomyelitis in the setting of a nonhealing neuropathic ulcer. He underwent open incision and drainage deep to the deep fascia with exposure of the extensor and flexor tendon and tendon sheath multiple sites left foot, second ray resection left foot, excisional debridement - 01/06/2017 and underwent reversion surgery on 01/09. Received IV Unasyn and vancomycin pending culture results. Infectious disease was consulted. OR specimen growing Group G strep and diphtheroids and the pathology positive for osteomyelitis. Patient was started on IV Unasyn 3000 mg every 6 hours- for 4 weeks-Till February 06. Recommended heel touch weightbearing and intact dressing. Continued pain management with IV morphine, oxycodone and Tylenol as per surgery 2. History of hypertension, hyperlipidemia, coronary artery disease We continued aspirin, statins, metoprolol. 3. History of diabetes mellitus Good blood glucose control ranging from 90s to 100. Oral hypoglycemic agents were on hold. He was on Accu-Cheks and sliding scale in the hospital 4 [place] on CKD: Creatinine improved to 1.1 from 1.7 after gentle hydration. 5. Peripheral artery disease Given his nonpalpable pedal pulses, an arterial duplex was ordered. Abnormal monophasi waveforms in the left below-knee arteries suggesting at least moderate underlying peripheral arterial disease. He underwent angiogram on 01/09/2017. The following are the findings -Patent aorta with no significant disease. -Patent bilateral common iliac, external iliac, and internal iliac arteries with no significant disease. Left common and external iliac arteries are tortuous. -Patent left common femoral and profunda femoris with no significant disease. SFAs patent without significant disease. -Patent popliteal artery, anterior tibial, tibial peroneal trunk Selin peroneal and posterior tibial artery. There is three-vessel runoff to the foot. There is mild disease in the midsegment of the posterior tibial artery. DVT prophylaxis subcutaneous heparin Code status DNI,DNR Complications: none Allergies: Coded Allergies: NO KNOWN ALLERGIES (01/24/11) Significant Procedures: Surgery Date: 01/06/17 Name of Procedure: 1 open incision and drainage deep to the deep fascia with exposure of the extensor and flexor tendon and tendon sheath multiple sites left foot 2 second ray resection left foot 3 intraoperative administration of ankle block anesthesia 4 excisional debridement Pre-Operative Diagnosis: 1 open necrotic wound left foot 2 osteomyelitis left foot 3 diabetic peripheral neuropathy Post-Operative Diagnosis: The same Estimated Blood Loss: less than 50ml Surgeon/Wood Stainer: GINO AGUIAR DPM Anesthesia: moderate sedation, block Operative/Procedure Note Note: After obtaining informed consent the patient was brought to the operating room and placed on the operating table in the supine position. The patient isn't securely fastened to the operating table utilizing safety belt. After Mr.'s of IV sedation, 10 mL of 0.5% Marcaine plain was infiltrated about the patient's left ankle. The left foot and ankle then scrubbed prepped and draped in usual aseptic manner. Digitorectal left foot were large full-thickness necrotic was identified. A 15 blade visualized sharply revised skin margins. A dorsal incision was extended overlying the distal second ray. This was carried down deep to the deep fascia with exposure of the extensor and flexor tendon and tendon sheath multiple sites, both proximally and distally. All necrotic nonviable infected tissue sharply evacuated from the wound bed. Dissection was then carried down to the periosteum overlying the distal second metatarsal which was incised reflected. Sagittal bone saw was utilized performed through and through osteotomy in the distal osseous segment was freed and passed from the operative field. Specimen sent for both pathologic and Sae biologic inspection. The open wound was then irrigated with 3 L of normal sterile saline fissure 50,000 units of bacitracin. Following this, the foot was redraped and the surgeon's top was changed clean gloves. Any bleeding vessels identified were cauterized or ligated as encountered. Nipple was then packed with iodoform and 3-0 nylon sutures were placed. Foot was dressed with 4 x 4's Kerlix and an Cornelio wrap. The patient was noted tolerate both procedure and anesthesia well and the patient was transported from the operating room to recovery with vital signs stable. Surgery Date: 01/09/17 Name of Procedure: 1 open incision and drainage deep to the deep fascia with exposure of the extensor and flexor tendon and tendon sheath multiple sites left foot 2 delayed primary closure of open surgical wound with local random advancement flap 3 revisional partial second ray resection left foot 4 intraoperative administration of ankle block anesthesia 5 excisional debridement Pre-Operative Diagnosis: 1 open necrotic wound left foot 2 osteomyelitis left foot 3 diabetic peripheral neuropathy Post-Operative Diagnosis: The same Estimated Blood Loss: less than 50ml Surgeon/Wood Stainer: GINO AGUIAR DPM Anesthesia: moderate sedation, block Operative/Procedure Note Note: After obtaining informed consent the patient was brought to the operating room and placed on the operating table in the supine position. The patient was then securely fastened to the operating table utilizing safety belt. After administration of IV sedation, 10 mL of 0.5% Marcaine plain was infiltrated about the patient's left ankle. The patient underwent a vascular procedure consisting of an angiogram. This demonstrated three-vessel runoff to the lower extremity. Next, the left foot and ankle were scrubbed prepped and draped in usual aseptic manner. Attention was directed to the left foot, where a large full-thickness necrotic was identified. A 15 blade was utilized sharply revised skin margins. The dissection was then carried down deep to the D fashion with exposure of the extensor and flexor tendon and tendon sheath multiple sites left foot. All necrotic nonviable infected tissue sharply evacuated from the wound bed. Dissection and continued down to the stump of the second metatarsal, with the periosteum was incised reflected. Sagittal bone saw was utilized to perform a through and through osteotomy in the distal osseous segment was freed and passed from the operative field. Specimen sent for pathologic inspection. Nipple was then irrigated with 3 L of normal sterile saline fissure 50,000 units of bacitracin. Following this the foot was redraped and the surgeon's top was changed clean gloves. Any bleeding vessels identified were cauterized or ligated as encountered. The deep tissues were then coapted with 2-0 Vicryl utilizing simple interrupted stitches. Next, the skin edges were coapted with 2 -0 nylon. The incision was then dressed with Xeroform 4 x 4's Kerlix and an Cornelio wrap. The patient is noted tolerate both procedure and anesthesia well and the patient was transported from the operating room to recovery by sent stable best assess intact to the medial lateral flaps. Surgery Date: 01/09/17 Name of Procedure: -Ultrasound-guided right common femoral artery access -Aortogram -Third order left leg angiogram Pre-Operative Diagnosis: Nonhealing left foot wound Post-Operative Diagnosis: Same Estimated Blood Loss: scant Surgeon/Wood Stainer: GÓMEZ MIRELES MD Anesthesia: moderate sedation Operative/Procedure Note Note: 76-year-old gentleman with diabetes presented with chronic nonhealing wound of left foot. Arterial ultrasound showed diseased tibial vessels. There was no palpable pedal pulses. The patient was scheduled for left leg angiogram with possible interventions. The nature of the procedure including its possible complication including but not limited to bleeding, infection, blood clots, injury to vessels, and need for re-intervention were discussed. An informed consent was obtained. The patient was taken to the operating room and placed supine on the table. A timeout was called according to protocol. After satisfactory induction of anesthesia, the patient was prepped and draped in standard surgical fashion. An ultrasound, right common femoral artery was accessed using micropuncture technique. A Bentson wire was advanced into the aorta under direct fluoroscopic guidance. The micropuncture sheath was then exchanged with a short 5 Kyr[place]z sheath. Then an Omni Flush catheter was advanced over the wire and placed into the abdominal aorta. From this position, an aortogram was performed with findings outlined below. Then using the Omni Flush catheter and Bentson wire, the artery system was selected. The Omni Flush catheter was then exchanged with 65 cm 5 K[place]z glide catheter. The catheter was then advanced over the wire under direct fluoroscopic guidance and was placed in the proximal left common femoral artery. From this position, left leg angiogram was performed with findings outlined below. Using the glide catheter and a Bentson wire, the middle SFA was then selected. The glide catheter was advanced over the wire and placed into the mid SFA. From this position, her left leg angiogram was performed with findings outlined below. Then wires and catheters were removed. Exoseal device was used to close the puncture site. 5 minutes of manual pressure was applied. Then sterile dressing was applied. Dr. Aguiar then came to perform his part of the procedure. The details of this part of the procedure, please refer to Dr. Aguiar notes. Radiographic findings: -Patent aorta with no significant disease. -Patent bilateral common iliac, external iliac, and internal iliac arteries with no significant disease. Left common and external iliac arteries are tortuous. -Patent left common femoral and profunda femoris with no significant disease. SFAs patent without significant disease. -Patent popliteal artery, anterior tibial, tibial peroneal trunk Selin peroneal and posterior tibial artery. There is three-vessel runoff to the foot. There is mild disease in the midsegment of the posterior tibial artery. Pertinent Lab Results: EXAM TYPE: US - US-BILAT LOW EXTR ARTERIAL DOP EXAMINATION: US-BILAT LOW EXTR ARTERIAL DOP CLINICAL INFORMATION: Nonhealing ulcer left foot. COMPARISON: None TECHNIQUE: Real-time ultrasound and Doppler techniques (integrating B-mode 2-D vascular images, Doppler spectral analysis and color flow Doppler imaging) were utilized to interrogate the lower extremities. FINDINGS: Right lower extremity: Common femoral artery: 90 cm/sec; triphasic waveform Superficial femoral artery proximal: 75 cm/sec; triphasic waveform Superficial femoral artery mid portion: 100 cm/sec; triphasic waveform Superficial femoral artery distal: 96 cm/sec; triphasic waveform Profunda artery: 75 cm/sec; biphasic waveform Popliteal artery: 79 cm/sec; triphasic waveform Posterior tibial artery: 181 cm/sec; triphasic and biphasic waveform Anterior tibial artery: 181 cm/sec; triphasic and biphasic waveform Dorsalis pedis artery: 49 cm/sec; monophasic waveform Left lower extremity: Common femoral artery: 112 cm/sec; triphasic waveform Superficial femoral artery proximal: 105 cm/sec; triphasic waveform Superficial femoral artery mid portion: 118 cm/sec; triphasic waveform Superficial femoral artery distal: 106 cm/sec; triphasic waveform Profunda artery: 56 cm/sec; biphasic waveform Popliteal artery: 123 cm/sec; biphasic waveform Posterior tibial artery: 133 cm/sec; monophasic waveform Anterior tibial artery: 104 cm/sec; monophasic waveform Dorsalis pedis artery: 75 cm/sec; monophasic waveform ADDITIONAL FINDINGS: Scattered atherosclerotic plaque noted throughout the lower extremity arteries. IMPRESSION: Abnormal monophasic waveforms in the left below-knee arteries suggesting at least moderate underlying peripheral arterial disease. Greater sensitivity and specificity can be obtained with pre-and post exercise PVRs with GARRY calculations. Also consider dedicated CTA for further anatomical detail. femur xray FINDINGS/IMPRESSION:: Intraoperative fluoroscopy was utilized by Dr. Mireles during abdominal aortogram and left lower extremity angiogram. Please refer to the operative report for a detailed description of the procedure and the real-time findings made and acted upon by the surgeon. footxray FINDINGS: Since the last radiograph of 01/01/2017 patient has undergone amputation of the second toe at the mid distal diaphyseal shaft of the second metatarsal. Patient's had a previous amputation which is old of the first MTP joint at the same level. The soft tissues distal to the amputation appears edematous but no radiopaque foreign body or air within the soft tissue. There is degenerative joint disease with subluxation of the third toe MTP joint. Bony ankylosis of the PIP joint of this toe. There is an old healed fracture of the metatarsal head of the fifth toe. Diffuse joint space narrowing and spurring, degenerative changes, of the midtarsal bones. IMPRESSION: Status post amputation of the second toe at the mid metatarsal. cxr FINDINGS: A right upper extremity PICC has been placed and its distal tip is located in the expected location of the superior vena cava. The electrode array of a spinal stimulator projects over the midthoracic region. Lungs are clear and well expanded. No focal consolidative disease, pleural effusion, or pneumothorax. The cardiac silhouette and upper mediastinal contours are normal. No acute osseous finding. IMPRESSION: The distal tip of a right upper extremity PICC is in the expected location of the superior vena cava. Disposition Summary Disposition Principal Diagnosis: Nonhealing ulcer on the plantar aspect of the left foot with cellulitis and underlying osteomyelitis Status post open incision and drainage Status post revision surgery pad s/p angiogram Additional Diagnosis: none Discharge Disposition: home health services Discharge Instructions General Discharge Information Code Status: Do Not Resucitate/Intubat Patient's Diet: As tolerated Patient's Activity: Heel touch weightbearing Follow-Up Instructions/Appts: f/u with pcp with in 1-2 weeks after discharge f/u with stretching press operator with in 1-2 weeks after discharge Follow up with vascular surgeon within 1-2 weeks after discharge Follow up with infectious disease specialist within 1-2 weeks after discharge Unasyn 3 g IV q 6 h to plan on a four-week course of treatment (until February 06 ). Will need a weekly ESR while on Unasyn Medications at Discharge Discharge Medications: Stop taking the following medications: Cephalexin (Cephalexin) 500 MG TAB ORAL EVERY SIX HOURS Qty = 11 Continue taking these medications: Morphine Sulfate (Morphine Sulfate) 30 MG TAB 1 Tablet ORAL THREE TIMES DAILY as needed for PAIN Qty = 100 Comments: Last Taken: 04/10/15 Time: 12:00 PM Lisinopril (Lisinopril) 20 MG TAB 1 Tablet ORAL TWICE DAILY Qty = 180 Comments: Last Taken: NOT GIVEN IN HOSPITAL Time: Metoprolol Tartrate (Lopressor) 25 MG TAB 1 Tablet ORAL TWICE DAILY Qty = 180 Comments: Last Taken: 04/10/15 Time: 9:40 AM Simvastatin (Simvastatin) 40 MG TAB 1 Tablet ORAL Every night Qty = 90 Comments: Last Taken: 04/09/15 Time: 5:00 PM NORTRIPTYLINE HCL (Pamelor) 25 MG CAP 1 Capsule ORAL Every night Qty = 90 Comments: Last Taken: 04/09/15 Time: 9:30 PM Gabapentin (Neurontin) 100 MG CAP 2 Capsule ORAL TWICE DAILY Qty = 360 Comments: Last Taken: NOT GIVEN IN HOSPITAL Time: Glimepiride (Glimepiride) 1 MG TAB 1 Tablet ORAL as needed for DIABETES Qty = 90 Comments: Last Taken: NOT GIVEN IN HOSPITAL Time: Fiber (Fibro-Tabs) 1 TAB TAB 1 Tablet ORAL DAILY Comments: Last Taken: NOT GIVEN IN HOSPITAL Time: Multivitamin (Multiple Vitamins) 1 TAB TAB 1 Tablet ORAL DAILY Comments: Last Taken: 04/10/15 Time: 9:40 AM OMEGA-3/DHA/EPA/FISH OIL (Alma-3 Fish Oil 1,000 MG Sftg) 1,000 MG SGL 1 Capsule ORAL DAILY Comments: Last Taken: NOT GIVEN IN HOSPITAL Time: Magnesium Oxide (Magnesium Oxide) (Unknown Strength) TAB 400 Milligram ORAL DAILY Comments: Last Taken: NOT GIVEN IN HOSPITAL Time: Aspirin (Aspirin) 325 MG ECT 1 Tablet ORAL DAILY Comments: Last Taken: 04/10/15 Time: 9:40 AM OXYCODONE HCL/ACETAMINOPHEN (Percocet 7.5-325 MG Tablet) 325 MG/7.5 MG TAB 1 Tablet ORAL 4 TIMES A DAY as needed for PAIN Qty = 30 Comments: Last Taken: 04/10/15 Time: 6:00 AM Start taking the following new medications: Ampicillin Sodium/Sulbactam Na (Unasyn 3 Gm Vial) 3 GRAM VIAL 3 Gram INTRAVEN EVERY SIX HOURS Qty = 100 No Refills Instructions: CONTINUE UNASYN TILL FEBRUARY 06 Copies To: GAURI LUGO MD
== END 2017-01-12 16:45 | disposition home health service (06) | DRG 617 ==
LOC: 1NO 16:48 → ENTRNSPT 01-06 18:27 → EDTRNSPTSTS 01-06 18:37 → CMPTRNSPT 01-06 18:53 → ENTRNSPT 01-09 17:02 → CMPTRNSPT 01-09 22:20 → 1NO 01-12 16:45
PROVIDERS: Hospitalist; Internal Medicine; Student in an Organized Health Care Education/Training Program; ADMIT Podiatrist Foot & Ankle Surgery
PROC: 0Y6N0ZB Detachment at Left Foot, Partial 2nd Ray, Open Approach (ICD-10-PCS; principal; 2017-01-06)
PROC: 0Y6N0ZB Detachment at Left Foot, Partial 2nd Ray, Open Approach (ICD-10-PCS; 2017-01-09)
PROC: B41D1ZZ Fluoroscopy of Aorta and Bilateral Lower Extremity Arteries using Low Osmolar Contrast (ICD-10-PCS; 2017-01-09)
DX: E11.69 Type 2 diabetes mellitus with other specified complication (principal); M86.172 Other acute osteomyelitis, left ankle and foot; N17.9 Acute kidney failure, unspecified; E11.22 Type 2 diabetes mellitus with diabetic chronic kidney disease; L03.116 Cellulitis of left lower limb; E11.621 Type 2 diabetes mellitus with foot ulcer; E11.42 Type 2 diabetes mellitus with diabetic polyneuropathy; I25.10 Atherosclerotic heart disease of native coronary artery without angina pectoris; E78.5 Hyperlipidemia, unspecified; I25.2 Old myocardial infarction; Z85.46 Personal history of malignant neoplasm of prostate; M47.9 Spondylosis, unspecified; E11.628 Type 2 diabetes mellitus with other skin complications; I87.2 Venous insufficiency (chronic) (peripheral); I12.9 Hypertensive chronic kidney disease with stage 1 through stage 4 chronic kidney disease, or unspecified chronic kidney disease; N18.3 Chronic kidney disease, stage 3 (moderate); I44.0 Atrioventricular block, first degree; I45.10 Unspecified right bundle-branch block; M10.9 Gout, unspecified; I73.9 Peripheral vascular disease, unspecified; G89.4 Chronic pain syndrome; Z95.5 Presence of coronary angioplasty implant and graft; Z66 Do not resuscitate; Z79.84 Long term (current) use of oral hypoglycemic drugs
CPT/HCPCS: 1NP; 87070; 87075; 36415; 73552; 73630-LT; 82436; 87071; 87147; 88305; 93005; 93010; 93925; 97110-GO; 97116-GO; 97161-GP; C1725; C1760; C1769; J0690; J1644; J1815; J2001; J3370; J7040; J7042; Q9967

== ENCOUNTER 2017-11-22 18:27 | Emergency (ER) | payer OTHER ==
[~2017-11-22] VITALS: Ht 200.7 cm; Wt 127.0 kg
[~2017-11-22 18:27] MED LIST changes: +AMARYL1 M1 PO; +ASPIRIN EC325 M2 PO; -ASPIRIN325 MG PO; +FIBER625 MG PO; -FIBRO-TABS1 TAB PO; -FISH OIL1000 MG PO; -GLIMEPIRIDE1 MG PO; +HYDROCHLOROTHIA25 M1 PO; +IBUPROFEN600 M1 PO; +LISINOPRIL20 M1 PO; -LISINOPRIL20 MG PO; -LOPRESSOR 25MG25 MG PO; -MAGNESIUM OXID400 MG PO; +MAGNESIUM400 M1 PO; +METOPROLOL TART25 M1 PO; +MIRALAX17 G1 PO; +MORPHINE SULFAT30 M7 PO; +MULTIPLE VITAM1 EAC2 PO; -MULTIVITAMIN1 TAB PO; +NEURONTIN100 M1 PO; -NEURONTIN100 MG PO; +OMEGA-3 FISH O1 EAC4 PO; +PAMELOR25 M1 PO; -PAMELOR25 MG PO; +PERCOCET 7.5-31 EACH PO; +SIMVASTATIN40 M1 PO; -SIMVASTATIN40 MG PO; +UNASYN 3 GM VIAL3 GM IV
--- NOTE | 2017-11-22 19:13 | ED GENERAL ADULT ---
History of Present Illness General Chief Complaint: General Adult Stated Complaint: LOW BLOOD PRESSURE Source: patient, family Exam Limitations: no limitations Vital Signs & Intake/Output Vital Signs & Intake/Output Vital Signs Date Time Temp Pulse Resp B/P B/P Pulse O2 O2 Flow FiO2 Mean Ox Delivery Rate 11/22 2022 98.7 101 18 130/67 97 Room Air 11/22 1942 Room Air 11/22 1829 99.4 116 18 150/76 96 Room Air Allergies Coded Allergies: sulfamethoxazole (From BACTRIM) (UNKNOWN 11/22/17) trimethoprim (From BACTRIM) (UNKNOWN 11/22/17) Reconcile Medications Ampicillin Sodium/Sulbactam Na (Unasyn 3 Gm Vial) 3 GRAM VIAL 3 GM IV Q6 osteomyelitis CONTINUE UNASYN TILL FEBRUARY 06 Aspirin (Ecotrin*) 325 MG TABLET.DR 1 TAB PO DAILY HEART/BLOOD (Reported) Gabapentin (Neurontin) 100 MG CAPSULE 2 CAP PO BID NERVE PAIN (Reported) Glimepiride (Amaryl) 1 MG TABLET 1 TAB PO PRN DM (Reported) Hydrochlorothiazide 25 MG TABLET 1 TAB PO QAM DIURETIC (Reported) Ibuprofen 600 MG TABLET 1 TAB PO TID PRN Elbow Pain with food Lisinopril 20 MG TABLET 1 TAB PO BID BP (Reported) Magnesium Oxide (Magnesium) 400 MG CAPSULE 1 CAP PO DAILY SUPPLEMENT ( Reported) Metoprolol Tartrate 25 MG TABLET 1 TAB PO BID HEART/BP (Reported) Morphine Sulfate 30 MG TABLET 1 TAB PO Q6H PRN PAIN SCALE 7-10 (SEVERE) ( Reported) Multivitamin (Multiple Vitamins) 1 EACH TABLET 1 TAB PO DAILY SUPPLEMENT ( Reported) Nortriptyline HCl (Pamelor) 25 MG CAPSULE 1 CAP PO QPM NERVE PAIN (Reported) [place]-3S/Dha/Epa/Fish Oil ([place]-3 Fish Oil 1,000 MG Sfgl) 300-1,000MG CAPSULE 1 CAP PO DAILY SUPPLEMENT (Reported) Oxycodone HCl/Acetaminophen (Percocet 7.5-325 MG Tablet) 7.5 MG-325 MG TABLET 1 TAB PO 4 TIMES/DAY PRN PAIN (Reported) Polycarbophil (Fiber) 625 MG TABLET 2 TAB PO BID SUPPLEMENT (Reported) Polyethylene Glycol 3350 (Miralax) 17 GRAM POWD.PACK 1 PAC PO PRN CONSTIPATION (Reported) dissolve in water Simvastatin (Simvastatin*) 40 MG TABLET 1 TAB PO QPM CHOLESTEROL (Reported) Triage Note: 77M TO ED FOR 3 DAYS OF FATIGUE, GROGGINESS AND GENERAL MAILAISE. FOUND BP 80'S/50S WHEN LAYING DOWN AT HOME. NORMOTENSIVE IN TRIAGE BUT NOT WELL APPEARING. CURRENTLY HAS ?GOUT BLISTER TO RIGHT THUMB AND JUST COMPLETED PREDNISONE TAPER. ACCUCHECK IN TRIAGE 188. ENDORSES COLD SWEATS, MOSTLY IN THE MORNING. DENIES CP/SOB/BOSTON/COUGH OR FEVERS. AFEBRILE IN TRIAGE. DENIES SICK CONTACTS. PMD DR Ralph DEL CID. PMD DR Ralph DEL CID. Triage Nurses Notes Reviewed? yes Onset: Gradual Duration: day(s): Timing: recent history Severity: moderate Modifying Factors: Improves With: rest. HPI: 77 year old male with hx of DM, HTN, CAD sp remote stent, >5 years ago presents with 3 days worsening weakness,generalized fatigue. at bedside provides most history stating that he was recently on prednisone for gout x 14 days recently finished course. Additionally, his pcp started prazosin as a new and additional med for his bpa few weeks ago. However, he had episodes of hypotension with it and it was stopped a week ago. However, His reports that he woke up this am he was groggy and weak. She took his blood pressure and systolic was in the 70's. She was concerned and brought him to the ED. She tells me that he has a history of chronic left foot infection and is scheduled for amputation this Thursday. No recent fever. He has wound care nurses visiting. No fever at home. Denies chest pain, sob. Poor appetite reported. Not much to eat or drink. He is still taking his lasix and other blood pressure medication despite feeling weak. Complains of some dizziness even with lying flat. Denies any speech problems, or unilateral weakness. Past History Travel History Traveled to [place] past 21 day No Medical History Any Pertinent Medical History? 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 He is status post a dorsal column pain stimulator, prostate cancer status post prostatectomy and TURP, wrongful hammertoe repairs with toe amputation, status post MRSA infection, left total knee arthroplasty, herniorrhaphy, ACS s/p PCI,cellulitis History of MRSA: Yes History of VRE: No History of CDIFF: No Surgical History Surgical History: hernia repair-inguinal, knee replacement (bilateral), prostatectomy, Left great toe amputation status post hammertoe repair Psychosocial History Who do you live with Spouse Services at Home None What is your primary language Mongolian Tobacco Use: Refused to answer Family History Family History, If Any: Relation not specified for: No pertinent family history Hx Contributory? No Review of Systems Review of Systems Constitutional: Reports: weakness, unexplained weight loss. Denies: see HPI, chills, diaphoresis, fever. Physical Exam Physical Exam General Appearance: well developed/nourished, lethargic Head: atraumatic, normal appearance Eyes: Bilateral: PERRL, EOMI. Ears, Nose, Throat: normal pharynx Neck: normal inspection, supple Respiratory: normal breath sounds, chest non-tender, no respiratory distress Cardiovascular: normal peripheral pulses, tachycardia Gastrointestinal: soft, non-tender, distention Extremities: normal inspection Skin: wound to left plantar surface clean without evidence of surrounding erythema. Serous drainage to gauze Core Measures ACS in differential dx? No CVA/TIA Diagnosis: Yes NIH Stroke Scale (24 Hours) NIH Stroke Scale (24 Hours) Response Value Level of Consciousness alert 0 LOC Questions answers both correctly 0 LOC Commands obeys both correctly 0 Best Gaze normal 0 Visual Noe no visual loss 0 Facial Paresis normal 0 Motor Arm - Left no drift 0 Motor Arm - Right no drift 0 Motor Leg - Left no drift 0 Total 0 Sepsis Present: No Sepsis Focused Exam Completed? No Progress Differential Diagnoses I considered the following diagnoses in my evaluation of the patient: -Dehydration -[place] on CKD -adrenal insufficiency Plan of Care: Orders Procedure Date/time Status Add-on Test (ER Only) 11/22 2012 Active Add-on Test (ER Only) 11/22 1950 Active URINALYSIS 11/22 1950 Active TROPONIN LEVEL 11/23 1911 Active COMPREHENSIVE METABOLIC PANEL 11/23 1911 Active CBC WITHOUT DIFFERENTIAL 11/23 1911 Complete THYROID STIMULATING HORMONE 11/22 1909 Active CORTISOL PM 06/03 1910 Active EKG 11/22 184 Active Current Medications Sig/Chan Start time Last Medication Dose Stop Time Status Admin Sodium Chloride 1,000 ML BOLUS ONE 11/22 2029 AC (Normal Saline 0.9%) 11/22 2128 Sodium Chloride 1,000 ML ONCE ONE 11/23 1999 AC 11/22 (Normal Saline 0.9%) 11/23 0359 1945 Laboratory Tests 11/22/17 1910: Anion Gap 11, Estimated GFR 39 L, BUN/Creatinine Ratio 15.9, Glucose 183 H, Calcium 9.0, Total Bilirubin 0.6, AST 16 L, ALT 24, Alkaline Phosphatase 89, Troponin I < 0.01, Total Protein 6.1 L, Albumin 3.1 L, Globulin 3.0, Albumin/ Globulin Ratio 1.0 L, TSH Pending, Cortisol PM Sample 17.5 H, CBC w Diff NO MAN DIFF REQ, RBC 4.46 L, MCV 88.1, MCH 30.1, MCHC 34.1, RDW 14.9 H, MPV 8.0, Gran % 66.1, Lymphocytes % 22.0, Monocytes % 7.6, Eosinophils % 4.0, Basophils % 0.3, Absolute Granulocytes 6.8 H, Absolute Lymphocytes 2.3, Absolute Monocytes 0.8 H, Absolute Eosinophils 0.4, Absolute Basophils 0 2024: Patient has improved with IVF, and his appetite has actually increased. He is asking for something to eat. His went to get him food. Giving another liter of fluid and awaiting labs. Lungs clear. VS improved. PT is feeling much better. BP is improved and HR is improved. Will walk patient. They are eager to dc home. Can finish IVF and dc home. Pt has an appt with his watch train assembler on Thursday. I have advised him not to take his lasix this evening as he was dehydrated. Monitor BP at home and continue taking metoprolol as directed. Await any further dose adjustments for when he sees his watch train assembler. Wound to foot redressed by RN. Initial ED EKG: sinus tach Departure Departure Disposition: HOME OR SELF CARE Condition: Stable Clinical Impression Primary Impression: Dehydration Referrals: Del Cid Gonzales [place] (PCP/Family) Departure Forms: Customer Survey General Discharge Information Critical Care Note Critical Care Note Critical Care Time: non-applicable
[2017-11-22 19:20] LABS: ABSOLUTE BASOPHIL COUNT 0 /CUMM (0.0-0.2); ABSOLUTE EOSINOPHIL COUNT 0.4 /CUMM (0.0-0.7); ABSOLUTE GRANULOCYTE CT 6.8 /CUMM (1.4-6.5); ABSOLUTE LYMPH COUNT 2.3 /CUMM (1.2-3.4); ABSOLUTE MONOCYTE COUNT 0.8 /CUMM (0.10-0.60); BASOPHIL % 0.3 % (0.0-2.0); GRANULOCYTE % 66.1 % (42.2-75.2); HEMATOCRIT 39.3 % (42-52); MEAN CORPUSCULAR HGB 30.1 PG (27.0-31.0); MEAN CORPUSCULAR HGB CONC 34.1 G/DL (33.0-37.0); MEAN CORPUSCULAR VOLUME 88.1 FL (80.0-94.0); PLATELET COUNT 388 /CUMM (130-400); RBC DISTRIBUTION WIDTH 14.9 % (11.5-14.5); RED BLOOD CELL CT 4.46 /CUMM (4.70-6.10); WHITE BLOOD CELL COUNT 10.3 /CUMM (4.8-10.8)
[2017-11-22 20:23] VITALS: BP 130/67
== END 2017-11-22 21:29 ==
LOC: ERH 18:27
PROVIDERS: Physician Assistant Medical
DX: E86.0 Dehydration (principal)
CPT/HCPCS: 93005; 93010

== ENCOUNTER 2017-11-23 17:20 | Emergency (ER) | payer OTHER ==
[~2017-11-23] VITALS: Ht 198.1 cm; Wt 122.5 kg
--- NOTE | 2017-11-23 18:23 | CT SCAN REPORT ---
EXAMINATION: CT HEAD WITHOUT CONTRAST CLINICAL INFORMATION: Altered mental status. COMPARISON: Head CT from 04/06/2015 TECHNIQUE: Contiguous axial imaging was performed from the skull base to vertex without intravenous administration of contrast. DLP: 836.88 mGy-cm FINDINGS: There is no evidence of acute intracranial hemorrhage or territorial infarction. No abnormal mass effect or midline shift is seen. Herman to white matter differentiation is well preserved. No extra-axial fluid collections are identified. Generalized parenchymal volume loss noted. The ventricles are normal in size. There is no abnormal attenuation within the brain parenchyma. The osseous structures and soft tissues are normal. The mastoid air cells are well aerated. There is a small retention cyst versus polyp in the right sphenoid sinus. There are multiple small 6-7 mm soft tissue nodules within the parotid glands bilaterally which may reflect intraparotid lymph nodes, otherwise nonspecific. A previous ovoid 2 cm mass in the right parotid gland is no longer visualized. IMPRESSION: No acute intracranial pathology. Multiple small soft tissue nodular foci within the parotid glands bilaterally which are nonspecific but may reflect intraparotid lymph nodes.
[2017-11-23 19:28] VITALS: BP 155/79
--- NOTE | 2017-11-23 19:30 | ED AMS/SEIZURE/WEAK/DIZZY ---
History of Present Illness General Chief Complaint: General Adult Stated Complaint: SIB DR DEL CID AND CATE Source: patient, family, old records Exam Limitations: no limitations Vital Signs & Intake/Output Vital Signs & Intake/Output Vital Signs Date Time Temp Pulse Resp B/P B/P Pulse O2 O2 Flow FiO2 Mean Ox Delivery Rate 11/23 1928 100 18 155/79 96 Room Air 11/23 1731 99.0 102 18 130/73 94 Room Air Allergies Coded Allergies: sulfamethoxazole (From BACTRIM) (UNKNOWN 11/22/17) trimethoprim (From BACTRIM) (UNKNOWN 11/22/17) Triage Note: PT WAS SEEN IN ED LAST NIGHT AND PCP AND DR. ESPOSITO FELT PT NEEDED A CT OF HIS HEAD BECAUSE PT HAS HAD AMS FOR A COUPLE OF DAYS. PT WAS DIAGNOSED WITH DEHYDRATION LAST NIGHT AND WAS GIVEN 2L OF NS AND DISCHARGED TO HOME. PT STATES HE FEELS BETTER TODAY AND SPOUSE STATES HE IS BACK TO NORMAL BUT BOTH WANTED HIM TO GET A CT OF HIS HEAD. Triage Nurses Notes Reviewed? yes Onset: Gradual Duration: better, gone now Timing: recent history Severity: mild Severity Numbers: 1 HPI: Patient is a 77-year-old male with a past medical history of diabetes, hypertension, CAD status post remote stent placement who presented to [facility] yesterday for concerns of a three-day history of generalized weakness and fatigue patient was given IV fluids had blood work with unremarkable findings and was diagnosed with dehydration who he was advised by his primary care doctor and his administrative law judge to return to the emergency room to receive an emergent CAT scan of his head. Patient states that when he left the emergency room yesterday he had complete resolution of his symptoms had normal steady gait uses a walker. Patient has a surgical appointment this Thursday with his hemodialysis rn for concerns of an infected left toe however denies any fever chills or worsening pain to his left foot where he has a pneumatic boot on Patient was evaluated by the home nurse today and found out that he had presented to [facility] in which his primary care Dr. Del Cid and Dr. Esposito were notified that he was in the emergency room and both advised patient to present to the ER again for evaluation of a CT scan of his head Patient denies any symptoms denies any headaches blurred vision dizziness fever chills and is otherwise without complaints (Bandar Mederos) Reconcile Medications Aspirin (Ecotrin*) 325 MG TABLET.DR 1 TAB PO DAILY HEART/BLOOD (Reported) Gabapentin (Neurontin) 100 MG CAPSULE 2 CAP PO BID NERVE PAIN (Reported) Glimepiride (Amaryl) 1 MG TABLET 1 TAB PO PRN DM (Reported) Ibuprofen 600 MG TABLET 1 TAB PO TID PRN Elbow Pain with food Lisinopril 20 MG TABLET 1 TAB PO BID BP (Reported) Magnesium Oxide (Magnesium) 400 MG CAPSULE 1 CAP PO DAILY SUPPLEMENT ( Reported) Metoprolol Tartrate 25 MG TABLET 1 TAB PO BID HEART/BP (Reported) Morphine Sulfate 30 MG TABLET 1 TAB PO Q6H PRN PAIN SCALE 7-10 (SEVERE) ( Reported) Multivitamin (Multiple Vitamins) 1 EACH TABLET 1 TAB PO DAILY SUPPLEMENT ( Reported) Nortriptyline HCl (Pamelor) 25 MG CAPSULE 1 CAP PO QPM NERVE PAIN (Reported) [place]-3S/Dha/Epa/Fish Oil ([place]-3 Fish Oil 1,000 MG Sfgl) 300-1,000MG CAPSULE 1 CAP PO DAILY SUPPLEMENT (Reported) Polycarbophil (Fiber) 625 MG TABLET 2 TAB PO BID SUPPLEMENT (Reported) Polyethylene Glycol 3350 (Miralax) 17 GRAM POWD.PACK 1 PAC PO PRN CONSTIPATION (Reported) dissolve in water Simvastatin (Simvastatin*) 40 MG TABLET 1 TAB PO QPM CHOLESTEROL (Reported) (Julee [place],Gilberto Silverman) Past History Travel History Traveled to [place] past 21 day No Medical History Any Pertinent Medical History? 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 He is status post a dorsal column pain stimulator, prostate cancer status post prostatectomy and TURP, wrongful hammertoe repairs with toe amputation, status post MRSA infection, left total knee arthroplasty, herniorrhaphy, ACS s/p PCI,cellulitis History of MRSA: Yes History of VRE: No History of CDIFF: No Surgical History Surgical History: hernia repair-inguinal, knee replacement (bilateral), prostatectomy, Left great toe amputation status post hammertoe repair Psychosocial History Who do you live with Spouse Services at Home None What is your primary language Ukrainian Tobacco Use: Never used ETOH Use: denies use Illicit Drug Use: denies illicit drug use Family History Family History, If Any: Relation not specified for: No pertinent family history Hx Contributory? No (Bandar Mederos) Review of Systems Review of Systems Constitutional: Reports: no symptoms. EENTM: Reports: no symptoms. Respiratory: Reports: no symptoms. Cardiovascular: Reports: no symptoms. GI: Reports: no symptoms. Genitourinary: Reports: no symptoms. Musculoskeletal: Reports: no symptoms. Skin: Reports: no symptoms. Neurological/Psychological: Reports: no symptoms. Hematologic/Endocrine: Reports: no symptoms. Immunologic/Allergic: Reports: no symptoms. All Other Systems: Reviewed and Negative (Bandar Mederos) Physical Exam Physical Exam General Appearance: no apparent distress, alert, comfortable Head: atraumatic Eyes: Bilateral: normal appearance, PERRL, EOMI. Ears, Nose, Throat: normal pharynx, normal ENT inspection, hearing grossly normal Neck: normal inspection, supple Respiratory: normal breath sounds, chest non-tender, no respiratory distress Cardiovascular: regular rate/rhythm Gastrointestinal: normal bowel sounds, soft, non-tender Neurologic/Psych: no motor/sensory deficits, awake, alert, oriented x 3, log inspector II- XII nml as tested Core Measures ACS in differential dx? No CVA/TIA Diagnosis No Sepsis Present: No Sepsis Focused Exam Completed? No (Bandar Mederos) Progress Differential Diagnosis: alcohol intoxication, anemia, benign positional vertigo, CVA/stroke, dehydration, drug intoxication, encephalitis, electrolyte imbalance, hypoglycemia, hypoxia, intracranial Hem., intracranial mass/tumor, labrynthitis, meningitis, Meniere's disease, migraine DAVIS, multiple sclerosis, pneumonia, postural hypotension, presyncope, post-traumatic vertigo, sepsis, seizure disorder, subarachnoid Hem., UTI/pyelo, vertebrobasilar insuff Plan of Care: Patient upon initial examination is without complaints and has unremarkable physical exam CT scan was resulted showing no acute findings discussed results with patient patient normal steady gait on discharge He has a follow-up appointment tomorrow with his administrative law judge DISCUSSED PT WITH DR MARTINEZ Diagnostic Imaging: Viewed by Me: CT Scan. Radiology Impression: no acute abnormality Initial ED EKG: none Comments: PATIENT: DENNIS BOUDREAUX PRESENT AGE: 77 PATIENT ACCOUNT NO: [id number] : 41 LOCATION: [facility] ORDERING PHYSICIAN: Bandar MELO SERVICE DATE: 11/23/17 EXAM TYPE: CAT - CT HEAD WO IV CONTRAST EXAMINATION: CT HEAD WITHOUT CONTRAST CLINICAL INFORMATION: Altered mental status. COMPARISON: Head CT from 04/06/2015 TECHNIQUE: Contiguous axial imaging was performed from the skull base to vertex without intravenous administration of contrast. DLP: 836.88 mGy-cm FINDINGS: There is no evidence of acute intracranial hemorrhage or territorial infarction. No abnormal mass effect or midline shift is seen. Herman to white matter differentiation is well preserved. No extra-axial fluid collections are identified. Generalized parenchymal volume loss noted. The ventricles are normal in size. There is no abnormal attenuation within the brain parenchyma. The osseous structures and soft tissues are normal. The mastoid air cells are well aerated. There is a small retention cyst versus polyp in the right sphenoid sinus. There are multiple small 6-7 mm soft tissue nodules within the parotid glands bilaterally which may reflect intraparotid lymph nodes, otherwise nonspecific. A previous ovoid 2 cm mass in the right parotid gland is no longer visualized. IMPRESSION: No acute intracranial pathology. Multiple small soft tissue nodular foci within the parotid glands bilaterally which are nonspecific but may reflect intraparotid lymph nodes. DICTATED BY: Gilberto Foster MD DATE/TIME DICTATED:11/23/171813 BATTERY WRECKER OPERATOR:SRIINVAS DATE/TIME TRANSCRIBED:11/23/171813 CONFIDENTIAL, DO NOT COPY WITHOUT APPROPRIATE AUTHORIZATION. <Electronically signed in Other Vendor System> SIGNED BY: Gilberto Foster MD [id number] (Bandar Mederos) Departure Departure Disposition: HOME OR SELF CARE Condition: Stable Clinical Impression Primary Impression: Dehydration Referrals: Gonzales Del Cid MD (PCP/Family) Additional Instructions: As discussed follow-up with administrative law judge appointment tomorrow, if symptoms worsen or if YOU develop A new concerning symptoms return to emergency room continue to hydrate with plenty of water. Follow-up with your surgical appointment at the end of the week Departure Forms: Customer Survey General Discharge Information (Bandar Mederos) PA/CLINICAL REHABILITATION SPECIALIST Co-Sign Statement Statement: ED Attending supervision documentation- [X] I saw and evaluated the patient. I have also reviewed all the pertinent lab results and diagnostic results. I agree with the findings and the plan of care as documented in the PA's/CLINICAL REHABILITATION SPECIALIST's documentation. [X] I have reviewed the ED Record and agree with the PA's/CLINICAL REHABILITATION SPECIALIST's documentation. [] Additions or exceptions (if any) to the PAs/CLINICAL REHABILITATION SPECIALIST's note and plan are summarized below: [] (Julee [place],Gilberto Silverman)
== END 2017-11-23 20:20 ==
LOC: ERH 17:20
DX: E86.0 Dehydration (principal)

== ENCOUNTER → 2018-02-09 | Day surgery (SDC) | payer OTHER ==
[~2018-02-09] VITALS: Ht 200.7 cm; Wt 127.0 kg
--- NOTE | 2018-02-09 08:20 | History & Physical Pre-Op ---
General Information and HPI History of Present Illness: Tucker is a 77-year-old diabetic male with a history of a worsening ulceration to the plantar medial aspect of his right heel. The patient has a history of ulcerations, some of which required digital amputations on his left with courses of outpatient IV antibiotics. The patient has failed standard local wound care, including strict offloading with absorptive and allograft therapy. Allergies/Medications Allergies: Coded Allergies: sulfamethoxazole (From BACTRIM) (UNKNOWN 11/22/17) trimethoprim (From BACTRIM) (UNKNOWN 11/22/17) Home Med list Aspirin (Ecotrin*) 325 MG TABLET.DR 1 TAB PO DAILY HEART/BLOOD (Reported) Gabapentin (Neurontin) 100 MG CAPSULE 2 CAP PO BID NERVE PAIN (Reported) Glimepiride (Amaryl) 1 MG TABLET 1 TAB PO PRN DM (Reported) Ibuprofen 600 MG TABLET 1 TAB PO TID PRN Elbow Pain with food Lisinopril 20 MG TABLET 1 TAB PO BID BP (Reported) Magnesium Oxide (Magnesium) 400 MG CAPSULE 1 CAP PO DAILY SUPPLEMENT ( Reported) Metoprolol Tartrate 25 MG TABLET 1 TAB PO BID HEART/BP (Reported) Morphine Sulfate 30 MG TABLET 1 TAB PO Q6H PRN PAIN SCALE 7-10 (SEVERE) ( Reported) Multivitamin (Multiple Vitamins) 1 EACH TABLET 1 TAB PO DAILY SUPPLEMENT ( Reported) Nortriptyline HCl (Pamelor) 25 MG CAPSULE 1 CAP PO QPM NERVE PAIN (Reported) Charlotte-3S/Dha/Epa/Fish Oil (Charlotte-3 Fish Oil 1,000 MG Sfgl) 300-1,000MG CAPSULE 1 CAP PO DAILY SUPPLEMENT (Reported) Polycarbophil (Fiber) 625 MG TABLET 2 TAB PO BID SUPPLEMENT (Reported) Polyethylene Glycol 3350 (Miralax) 17 GRAM POWD.PACK 1 PAC PO PRN CONSTIPATION (Reported) dissolve in water Simvastatin (Simvastatin*) 40 MG TABLET 1 TAB PO QPM CHOLESTEROL (Reported) Past History Medical History Neurological: peripheral neuropathy EENT: NONE Cardiovascular: CAD (status post stent 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 He is status post a dorsal column pain stimulator, prostate cancer status post prostatectomy and TURP, wrongful hammertoe repairs with toe amputation, status post MRSA infection, left total knee arthroplasty, herniorrhaphy, ACS s/p PCI,cellulitis History of MRSA: Yes History of VRE: No History of CDIFF: No Surgical History Pertinent Surgical History: hernia repair-inguinal, knee replacement (bilateral) , prostatectomy, Left great toe amputation status post hammertoe repair Past Family/Social History Family History Relations & Conditions if any Relation not specified for: No pertinent family history Psychosocial History Who Do You Live With? spouse Services at Home None Primary Language: [place] Functional Ability ADLs Independent: dressing, eating, toileting, bathing. Ambulation: independent IADLs Independent: shopping, housework, finances, food prep, telephone, transportation , medication admin. Review of Systems Review of Systems: Unremarkable except for that noted in history present illness Exam & Diagnostic Data Physical Exam: Lungs clear bilaterally. Heart sounds rate and rhythm regular. Lower extremity physical exam demonstrates intact pedal pulses bilaterally. Both dorsalis pedis and posterior tibial arteries are palpable bilaterally. Patient noted to have a sensory deficit at the plantar foot in a moccasin type distribution bilaterally. Patient noted to have an unstageable and boggy laceration to the medial aspect of his right heel. There is no probing or undermining. There is slough overlying a mixed granular fibrotic wound bed. Moderate amount of serous drainage identified. No cellulitis noted. Assessment/Plan Assessment/Plan: Nonhealing ulcer right heel. A lengthy discussion reviewing both surgical and conservative options were to have the patient at bedside and the patient elected to go forward with surgery despite the risks. As Ranked By This Provider Problem List: 1. Foot ulcer with fat layer exposed 2. Cellulitis of right leg Attending MD Review Statement Attending Statement Attending MD Statement: examined this patient
--- NOTE | 2018-02-09 13:54 | Operative Report ---
Operative/Inv Procedure Report Surgery Date: 02/09/18 Name of Procedure: 1 open incision and drainage deep to the deep fascia with exposure of the extensor and flexor tendon and tendon sheath multiple sites right heel 2 intraoperative administration of ankle block anesthesia 3 intraoperative application of negative pressure wound therapy 4 excisional debridement Pre-Operative Diagnosis: 1 open necrotic wound right heel 2 diabetic peripheral neuropathy Post-Operative Diagnosis: The same Estimated Blood Loss: less than 50ml Surgeon/Licensing Analyst: Onelia FELIX,Fermin Jones DPM Anesthesia: moderate sedation, block Operative/Procedure Note Note: After obtaining informed consent the patient was brought to the operating room and placed on the operating table in the supine position. The patient was then securely fastened to the operating table utilizing a safety belt. After menstruation of IV sedation, 10 cc of 0.5% Marcaine plain was infiltrated about the patient's right ankle. The right foot and ankle were then scrubbed, prepped and draped in the usual aseptic manner. Attention directed to the plantar medial right heel where a large full-thickness necrotic was identified. A 15 blade was utilized sharply advise skin margins. The dissection was then carried down deep to the deep fascia with exposure of the extensor and flexor tendon and tendon sheath multiple sites, both proximally and distally. All necrotic, nonviable infected tissue was sharply evacuated of the wound bed. Next the wound was irrigated with 3 L of normal sterile saline infused with 50,000 units of bacitracin. Following this the foot was redraped and the surgeons top pleasure tragically lost. Any bleeding vessels identified were cauterized or ligated encountered. Next, negative pressure wound therapy was placed followed by the application of Kerlix and an Cornelio wrap. Patient was noted to tolerate both procedure and anesthesia well the patient was transferred on the operating room to recovery with vital signs stable.
== END ==
LOC: STS 01:47
DX: E11.621 Type 2 diabetes mellitus with foot ulcer (principal); L97.412 Non-pressure chronic ulcer of right heel and midfoot with fat layer exposed; L97.413 Non-pressure chronic ulcer of right heel and midfoot with necrosis of muscle; E11.42 Type 2 diabetes mellitus with diabetic polyneuropathy; Z79.84 Long term (current) use of oral hypoglycemic drugs; I25.10 Atherosclerotic heart disease of native coronary artery without angina pectoris; Z95.5 Presence of coronary angioplasty implant and graft; I10 Essential (primary) hypertension; I25.2 Old myocardial infarction; M10.9 Gout, unspecified
CPT/HCPCS: 88304; J0690; J2001; J2250